=== PATIENT | female | born 1935 | race American Indian/Alaskan Native ===

== ENCOUNTER 2016-12-01 14:42 | Inpatient (IN) | payer MEDICARE ==
--- NOTE | 2016-12-01 15:37 | Cat Scan Report ---
Suggestive of head without contrast: History: Syncope. Findings: Ventricles are midline in location. Moderate volume loss. Periventricular low-attenuation. Study limited by motion artifacts. 3 cm focal area of low attenuation right cerebellum. No extra-axial fluid collection. Normal sinuses. Impression: No acute intracranial abnormality. Low-attenuation in the right cerebellum probably chronic ischemia. No evidence of hemorrhage. Cortical atrophy and small vessel ischemic changes.
--- NOTE | 2016-12-01 15:56 | XRay Report ---
Single view chest: History: Shortness of breath, syncope. Findings Normal cardiomediastinal silhouette. Trachea is midline. No consolidation, pneumothorax or pleural effusion. Impression: No acute cardiopulmonary findings.
[2016-12-01] MEDS ORDERED: ZOFRAN IV ONE (16:37)
[2016-12-01] MEDS ORDERED: MORPHINE IV ONE (16:37)
[2016-12-01 16:47] LABS: Eosinophils % (Auto) 3.8 % (0.0-4.3); Mean Corpuscular HGB Conc 30 % (30-34); Mean Corpuscular Volume 79 fl (79-97); Platelet Count 191 K/mm3 (140-440); Red Blood Count 5.28 M/mm3 (3.65-5.03); White Blood Count 5.9 K/mm3 (4.5-11.0)
[2016-12-01 16:49] LABS: Hemoglobin 12.6 gm/dl (10.1-14.3)
[2016-12-01 16:50] LABS: Creatine Kinase MB 2.6 ng/mL (0.0-4.0); Hematocrit 41.6 % (30.3-42.9); Mean Corpuscular Hemoglobin 24 pg (28-32)
[2016-12-01 16:51] LABS: Albumin 3.7 g/dL (3.9-5); Albumin/Globulin Ratio 1.1 %; BUN/Creatinine Ratio 12.85; Bilirubin,Total 0.2 mg/dL (0.1-1.2); Calcium 9.8 mg/dL (8.4-10.2); Chloride 103.7 mmol/L (98-107); Magnesium 1.7 mg/dL (1.7-2.3); Potassium 4.4 mmol/L (3.6-5.0); Total Protein 7.2 g/dL (6.3-8.2)
[2016-12-01 16:57] LABS: INR 1.03 (0.87-1.13)
[2016-12-01 16:58] LABS: Partial Thromboplastin Time 28.5 Sec. (24.2-36.6)
[2016-12-01] MEDS ORDERED: NACL 0.9% 1000 ML 1,000 ML ONE (17:04)
[2016-12-01] MEDS ORDERED: NACL 0.9% 1000 ML 1,000 ML IV ONE (17:12)
[2016-12-01 17:20] LABS: Urine Drugs of Abuse Note Disclamer
[2016-12-01 17:40] LABS: Bacteria,Urine 4+ /HPF (Negative); Bilirubin,Urine NEG (Negative); Blood,Urine SM (Negative); Ketones,Urine NEG (Negative); Leukocyte Esterase,Urine MOD (Negative); Mucus,Urine FEW /HPF; Nitrite,Urine NEG (Negative); Urobilinogen,Urine < 2.0 mg/dL (<2.0)
--- NOTE | 2016-12-01 17:44 | Emergency Department Report ---
ED Altered Mental Status HPI - General Chief Complaint: Altered Mental Status Stated Complaint: CVA Time Seen by Provider: 12/01/16 15:02 Source: EMS Mode of arrival: Stretcher Limitations: Altered Mental Status - History of Present Illness Initial Comments: 81-year-old female with a past medical history of CHF, diabetes, CABG 2, renal sufficiency, hypercholesterolemia, and hypertension presents to the hospital altered mental status. Episode was witnessed by daughter at the bedside. Patient states that they have just translucent patient from the wheelchair to the bed. Once in the bed she began to stay here and became unresponsive. Patient remained unresponsive even upon EMS arrival. EMS reports a D stick of 150 and a pressure of 60/36 with decreased respirations but positive gag. Patient presents to the ER with active bagging in progress. Patient does not have an IV in no meds administered in route. Patient is lethargic but opens her eyes to voice and follows commands. Appears to be weak overall and denies pain at this time. Patient unable to hold a conversation but will answer yes and no questions and able to tell me her name. History of present illness is obtained from EMS and daughters. Daughter also expresses concern due to left leg pain times one week. She states she told her primary care doctor's concern the patient has a blood clot. Once the other daughter came to the ED she states that patient has had ongoing left leg pain. Upon previous medical record review patient has had several complaints of leg pain and repeated negative ultrasounds in the past. Daughters report that she has never had a blood clot before despite their concern. They also deny unilateral edema PMD: Dr. Coyne - Related Data Home Medications Medication Instructions Recorded Confirmed Last Taken Aspirin [Aspirin BABY CHEW TAB] 81 mg PO QDAY 07/12/13 12/01/16 1 Day Ago Docusate Sodium [Colace CAP] 100 mg PO QHS 07/12/13 12/01/16 1 Day Ago Donepezil [Aricept] 2.5 mg PO QDAY 12/01/16 12/01/16 1 Day Ago Febuxostat [Uloric] 40 mg PO QDAY 12/01/16 12/01/16 1 Day Ago Gabapentin [Neurontin] 300 mg PO BID 12/01/16 12/01/16 1 Day Ago LORazepam [Ativan] 2.5 mg PO DAILY 12/01/16 12/01/16 1 Day Ago PARoxetine [Paxil] 2.5 mg PO DAILY 12/01/16 12/01/16 1 Day Ago Pantoprazole [Protonix] 40 mg PO BID 12/01/16 12/01/16 1 Day Ago Previous Rx's Medication Instructions Recorded Last Taken Type Carvedilol [Coreg] 6.25 mg PO BID #60 tablet 05/25/14 1 Day Ago Rx Clopidogrel [Plavix] 75 mg PO QDAY #30 tablet 05/25/14 1 Day Ago Rx Allergies Allergy/AdvReac Type Severity Reaction Status Date / Time amoxicillin [Amoxicillin] Allergy Intermediate Rash Verified 07/12/13 12:09 Penicillins Allergy Intermediate Rash Verified 07/12/13 12:09 ED Review of Systems ROS: Stated complaint: CVA Other details as noted in HPI Comment: Unobtainable due to pts medical conditions (diminished mental status) ED Past Medical Hx - Past Medical History Hx Hypertension: Yes Hx Heart Attack/AMI: Yes (CAD) Hx Congestive Heart Failure: Yes Hx Diabetes: Yes Hx Renal Disease: Yes (Renal Insufficiency) Additional medical history: high chol - Surgical History Hx Open Heart Surgery: Yes (CABG 2 vessels) - Social History Smoking Status: Never Smoker - Medications Home Medications: Home Medications Medication Instructions Recorded Confirmed Last Taken Type Aspirin [Aspirin BABY CHEW TAB] 81 mg PO QDAY 07/12/13 12/01/16 1 Day Ago History Docusate Sodium [Colace CAP] 100 mg PO QHS 07/12/13 12/01/16 1 Day Ago History Carvedilol [Coreg] 6.25 mg PO BID #60 tablet 05/25/14 12/01/16 1 Day Ago Rx Clopidogrel [Plavix] 75 mg PO QDAY #30 tablet 05/25/14 12/01/16 1 Day Ago Rx Donepezil [Aricept] 2.5 mg PO QDAY 12/01/16 12/01/16 1 Day Ago History Febuxostat [Uloric] 40 mg PO QDAY 12/01/16 12/01/16 1 Day Ago History Gabapentin [Neurontin] 300 mg PO BID 12/01/16 12/01/16 1 Day Ago History LORazepam [Ativan] 2.5 mg PO DAILY 12/01/16 12/01/16 1 Day Ago History PARoxetine [Paxil] 2.5 mg PO DAILY 12/01/16 12/01/16 1 Day Ago History Pantoprazole [Protonix] 40 mg PO BID 12/01/16 12/01/16 1 Day Ago History ED Physical Exam - General Limitations: Altered Mental Status - Other Other exam information: General: depressed mental status Head exam: Atraumatic, normocephalic Eyes exam: Normal appearance, pupils equal reactive to light ENT: Moist mucous membrane, normal oropharynx Neck exam: Normal inspection, full range of motion, no meningismus nontender Respiratory exam: Clear to auscultation bilateral, no wheezes, rales, crackles Cardiovascular: Normal rate and rhythm Abdomen: Soft, nondistended, and nontender, with normal bowel sounds, no rebound, or guarding Extremity: Full range of motion normal inspection no deformity, no edema Back: Normal Inspection, full range of motion, no tenderness Neurologic: Lethargic, slow speech, no facial droop, arousable to voice and mild tactile stimulation equal hand accounting intern and foot dorsiflexion however generalized weakness noted without unilateral predominance Psychiatric: normal affect, normal mood ED Course Vital Signs 12/01/16 12/01/16 12/01/16 14:42 14:43 14:52 Temperature Pulse Rate 77 Respiratory Rate Blood Pressure 117/72 Blood Pressure [Left] O2 Sat by Pulse 100 100 100 Oximetry 12/01/16 12/01/16 12/01/16 15:08 15:10 15:40 Temperature Pulse Rate 86 81 151 H Respiratory 17 18 Rate Blood Pressure 139/70 139/70 Blood Pressure [Left] O2 Sat by Pulse 100 Oximetry 12/01/16 12/01/16 12/01/16 15:50 16:00 16:10 Temperature Pulse Rate 79 81 80 Respiratory 12 9 L 11 L Rate Blood Pressure 108/53 118/61 118/61 Blood Pressure [Left] O2 Sat by Pulse 100 98 97 Oximetry 12/01/16 12/01/16 12/01/16 16:20 16:30 16:40 Temperature Pulse Rate 72 Respiratory 17 18 15 Rate Blood Pressure 139/70 118/61 74/45 Blood Pressure [Left] O2 Sat by Pulse 97 92 94 Oximetry 12/01/16 12/01/16 12/01/16 16:45 16:50 17:00 Temperature Pulse Rate 69 Respiratory 18 16 17 Rate Blood Pressure 74/45 68/38 Blood Pressure [Left] O2 Sat by Pulse 95 83 L Oximetry 12/01/16 12/01/16 12/01/16 17:10 17:20 17:30 Temperature Pulse Rate 74 78 82 Respiratory 14 13 12 Rate Blood Pressure 64/34 86/48 86/48 Blood Pressure [Left] O2 Sat by Pulse 100 100 100 Oximetry 12/01/16 12/01/16 12/01/16 17:40 17:50 18:00 Temperature Pulse Rate 82 82 86 Respiratory 12 11 L 13 Rate Blood Pressure 116/69 116/69 127/65 Blood Pressure [Left] O2 Sat by Pulse 100 100 100 Oximetry 12/01/16 12/01/16 12/01/16 18:05 18:10 18:20 Temperature Pulse Rate 86 89 84 Respiratory 12 13 Rate Blood Pressure 127/65 127/65 Blood Pressure [Left] O2 Sat by Pulse 100 100 Oximetry 12/01/16 12/01/16 12/01/16 18:30 19:10 19:33 Temperature Pulse Rate 92 H 91 H Respiratory 13 16 Rate Blood Pressure 113/67 113/67 Blood Pressure [Left] O2 Sat by Pulse 100 98 100 Oximetry 12/01/16 12/01/16 12/01/16 19:40 19:54 19:57 Temperature 98.7 F Pulse Rate 91 H 82 Respiratory 13 12 12 Rate Blood Pressure 118/57 Blood Pressure 120/60 [Left] O2 Sat by Pulse 98 98 98 Oximetry - Reevaluation(s) Reevaluation #1: 12/01/16 17:58 Patient presents to the ED with bag valve mask ventilations in progress. Since patient was responsive she was transitioned to a nonrebreather mask and subsequently a nasal cannula. The pressure systolic in the 100s upon arrival without intervention. I placed left external jugular 20-gauge catheter upon arrival due to difficult peripheral access. Daughter at bedside reports that patient became more responsive and closer to her baseline and was complaining of generalized body aches. Patient takes Tylenol for pain at home and there isn 't any history of chronic narcotic use. Daughter requesting medication for patient's pain. Patient could not receive Toradol given chronic renal insufficiency therefore a very small dose of morphine 2 mg ordered with Zofran. After morphine patient became more drowsy and less responsive and systolic blood pressure dropped to the 60s. 1 liter of normal saline initiated. After 200 mL BP increased to 86. Patient is drowsy but responsive to tactile stimulation. At this time pt has received 800Ml NS and SBP of 116. Pt does have a history CHF with initial negative chest x-ray. VQ scan has been ordered based on elevated D-Dimer however patient has chronic d-dimer elevation greater than 4000. At 2013 patient had a negative VQ and Doppler. Patient also had a negative Doppler in April 2016 for DVT despite elevated d-dimer. Patient has mild troponin elevation without signs of acute NH on EKG. There is a likely secondary to chronic venous insufficiency and repeat troponin is pending. Patient requires admission to the hospital for further workup and evaluation. 12/01/16 18:03 - Lab Data Result diagrams: 12/01/16 16:04 12/01/16 16:04 Lab Results 12/01/16 12/01/16 12/01/16 Range/Units 16:04 16:04 16:04 WBC 5.9 (4.5-11.0) K/mm3 RBC 5.28 H (3.65-5.03) M/mm3 Hgb 12.6 (10.1-14.3) gm/dl Hct 41.6 (30.3-42.9) % MCV 79 (79-97) fl MCH 24 L (28-32) pg MCHC 30 (30-34) % RDW 18.0 H (13.2-15.2) % Plt Count 191 (140-440) K/mm3 Lymph % (Auto) 30.6 (13.4-35.0) % [place] % (Auto) 7.0 (0.0-7.3) % Eos % (Auto) 3.8 (0.0-4.3) % Baso % (Auto) 1.0 (0.0-1.8) % Lymph # 1.8 (1.2-5.4) K/mm3 [place] # 0.4 (0.0-0.8) K/mm3 Eos # 0.2 (0.0-0.4) K/mm3 Baso # 0.1 (0.0-0.1) K/mm3 Seg Neutrophils % 57.6 (40.0-70.0) % Seg Neutrophils # 3.4 (1.8-7.7) K/mm3 PT 13.4 (12.2-14.9) Sec. INR 1.03 (0.87-1.13) APTT 28.5 (24.2-36.6) Sec. D-Dimer 8312.87 H (0-234) ng/mlDDU VBG pH (7.320-7.420) Sodium 142 (137-145) mmol/L Potassium 4.4 (3.6-5.0) mmol/L Chloride 103.7 (98-107) mmol/L Carbon Dioxide 24 (22-30) mmol/L Anion Gap 19 mmol/L BUN 27 H (7-17) mg/dL Creatinine 2.1 H (0.7-1.2) mg/dL Estimated GFR 27 ml/min BUN/Creatinine Ratio 12.85 % Glucose 104 H (65-100) mg/dL Lactic Acid (0.7-2.0) mmol/L Calcium 9.8 (8.4-10.2) mg/dL Magnesium 1.7 (1.7-2.3) mg/dL Total Bilirubin 0.2 (0.1-1.2) mg/dL AST 18 (5-40) units/L ALT 8 (7-56) units/L Alkaline Phosphatase 102 (35-129) units/L Total Creatine Kinase 82 (30-135) units/L CK-MB (CK-2) 2.6 (0.0-4.0) ng/mL CK-MB (CK-2) Rel Index 3.1 (0-4) Troponin T 0.065 H (0.00-0.029) ng/mL Total Protein 7.2 (6.3-8.2) g/dL Albumin 3.7 L (3.9-5) g/dL Albumin/Globulin Ratio 1.1 % Triglycerides 177 H (2-149) mg/dL Cholesterol 231 H (50-199) mg/dL LDL Cholesterol Direct 157 H (50-130) mg/dL HDL Cholesterol 39 L (40-59) mg/dL Cholesterol/HDL Ratio 5.92 % Urine Color (Yellow) Urine Turbidity (Clear) Urine pH (5.0-7.0) Ur Specific [place] (1.003-1.030) Urine Protein (Negative) mg/dL Urine Glucose (UA) (Negative) mg/dL Urine Ketones (Negative) mg/dL Urine Blood (Negative) Urine Nitrite (Negative) Urine Bilirubin (Negative) Urine Urobilinogen (<2.0) mg/dL Ur Leukocyte Esterase (Negative) Urine WBC (Auto) (0.0-6.0) /HPF Urine RBC (Auto) (0.0-6.0) /HPF U Epithel Cells (Auto) (0-13.0) /HPF Urine Bacteria (Auto) (Negative) /HPF Urine Mucus /HPF Salicylates (2.8-20.0) mg/dL Urine Opiates Screen Urine Methadone Screen Acetaminophen (10.0-30.0) ug/mL Ur Barbiturates Screen Ur Phencyclidine Scrn Ur Amphetamines Screen U Benzodiazepines Scrn Urine Cocaine Screen U Marijuana (THC) Screen Drugs of Abuse Note Plasma/Serum Alcohol (0-0.07) gm% 12/01/16 12/01/16 12/01/16 Range/Units 16:04 16:04 16:14 WBC (4.5-11.0) K/mm3 RBC (3.65-5.03) M/mm3 Hgb (10.1-14.3) gm/dl Hct (30.3-42.9) % MCV (79-97) fl MCH (28-32) pg MCHC (30-34) % RDW (13.2-15.2) % Plt Count (140-440) K/mm3 Lymph % (Auto) (13.4-35.0) % [place] % (Auto) (0.0-7.3) % Eos % (Auto) (0.0-4.3) % Baso % (Auto) (0.0-1.8) % Lymph # (1.2-5.4) K/mm3 [place] # (0.0-0.8) K/mm3 Eos # (0.0-0.4) K/mm3 Baso # (0.0-0.1) K/mm3 Seg Neutrophils % (40.0-70.0) % Seg Neutrophils # (1.8-7.7) K/mm3 PT (12.2-14.9) Sec. INR (0.87-1.13) APTT (24.2-36.6) Sec. D-Dimer (0-234) ng/mlDDU VBG pH 7.275 L (7.320-7.420) Sodium (137-145) mmol/L Potassium (3.6-5.0) mmol/L Chloride (98-107) mmol/L Carbon Dioxide (22-30) mmol/L Anion Gap mmol/L BUN (7-17) mg/dL Creatinine (0.7-1.2) mg/dL Estimated GFR ml/min BUN/Creatinine Ratio % Glucose (65-100) mg/dL Lactic Acid 1.2 (0.7-2.0) mmol/L Calcium (8.4-10.2) mg/dL Magnesium (1.7-2.3) mg/dL Total Bilirubin (0.1-1.2) mg/dL AST (5-40) units/L ALT (7-56) units/L Alkaline Phosphatase (35-129) units/L Total Creatine Kinase (30-135) units/L CK-MB (CK-2) (0.0-4.0) ng/mL CK-MB (CK-2) Rel Index (0-4) Troponin T (0.00-0.029) ng/mL Total Protein (6.3-8.2) g/dL Albumin (3.9-5) g/dL Albumin/Globulin Ratio % Triglycerides (2-149) mg/dL Cholesterol (50-199) mg/dL LDL Cholesterol Direct (50-130) mg/dL HDL Cholesterol (40-59) mg/dL Cholesterol/HDL Ratio % Urine Color (Yellow) Urine Turbidity (Clear) Urine pH (5.0-7.0) Ur Specific [place] (1.003-1.030) Urine Protein (Negative) mg/dL Urine Glucose (UA) (Negative) mg/dL Urine Ketones (Negative) mg/dL Urine Blood (Negative) Urine Nitrite (Negative) Urine Bilirubin (Negative) Urine Urobilinogen (<2.0) mg/dL Ur Leukocyte Esterase (Negative) Urine WBC (Auto) (0.0-6.0) /HPF Urine RBC (Auto) (0.0-6.0) /HPF U Epithel Cells (Auto) (0-13.0) /HPF Urine Bacteria (Auto) (Negative) /HPF Urine Mucus /HPF Salicylates (2.8-20.0) mg/dL Urine Opiates Screen Urine Methadone Screen Acetaminophen < 15.0 (10.0-30.0) ug/mL Ur Barbiturates Screen Ur Phencyclidine Scrn Ur Amphetamines Screen U Benzodiazepines Scrn Urine Cocaine Screen U Marijuana (THC) Screen Drugs of Abuse Note Plasma/Serum Alcohol (0-0.07) gm% 12/01/16 12/01/16 12/01/16 Range/Units 16:15 16:16 17:17 WBC (4.5-11.0) K/mm3 RBC (3.65-5.03) M/mm3 Hgb (10.1-14.3) gm/dl Hct (30.3-42.9) % MCV (79-97) fl MCH (28-32) pg MCHC (30-34) % RDW (13.2-15.2) % Plt Count (140-440) K/mm3 Lymph % (Auto) (13.4-35.0) % [place] % (Auto) (0.0-7.3) % Eos % (Auto) (0.0-4.3) % Baso % (Auto) (0.0-1.8) % Lymph # (1.2-5.4) K/mm3 [place] # (0.0-0.8) K/mm3 Eos # (0.0-0.4) K/mm3 Baso # (0.0-0.1) K/mm3 Seg Neutrophils % (40.0-70.0) % Seg Neutrophils # (1.8-7.7) K/mm3 PT (12.2-14.9) Sec. INR (0.87-1.13) APTT (24.2-36.6) Sec. D-Dimer (0-234) ng/mlDDU VBG pH (7.320-7.420) Sodium (137-145) mmol/L Potassium (3.6-5.0) mmol/L Chloride (98-107) mmol/L Carbon Dioxide (22-30) mmol/L Anion Gap mmol/L BUN (7-17) mg/dL Creatinine (0.7-1.2) mg/dL Estimated GFR ml/min BUN/Creatinine Ratio % Glucose (65-100) mg/dL Lactic Acid (0.7-2.0) mmol/L Calcium (8.4-10.2) mg/dL Magnesium (1.7-2.3) mg/dL Total Bilirubin (0.1-1.2) mg/dL AST (5-40) units/L ALT (7-56) units/L Alkaline Phosphatase (35-129) units/L Total Creatine Kinase (30-135) units/L CK-MB (CK-2) (0.0-4.0) ng/mL CK-MB (CK-2) Rel Index (0-4) Troponin T (0.00-0.029) ng/mL Total Protein (6.3-8.2) g/dL Albumin (3.9-5) g/dL Albumin/Globulin Ratio % Triglycerides (2-149) mg/dL Cholesterol (50-199) mg/dL LDL Cholesterol Direct (50-130) mg/dL HDL Cholesterol (40-59) mg/dL Cholesterol/HDL Ratio % Urine Color Stephanie (Yellow) Urine Turbidity Turbid (Clear) Urine pH 5.0 (5.0-7.0) Ur Specific [place] 1.024 (1.003-1.030) Urine Protein 100 mg/dl (Negative) mg/dL Urine Glucose (UA) Neg (Negative) mg/dL Urine Ketones Neg (Negative) mg/dL Urine Blood Sm (Negative) Urine Nitrite Neg (Negative) Urine Bilirubin Neg (Negative) Urine Urobilinogen < 2.0 (<2.0) mg/dL Ur Leukocyte Esterase Mod (Negative) Urine WBC (Auto) 1.0 (0.0-6.0) /HPF Urine RBC (Auto) 4.0 (0.0-6.0) /HPF U Epithel Cells (Auto) 2.0 (0-13.0) /HPF Urine Bacteria (Auto) 4+ (Negative) /HPF Urine Mucus Few /HPF Salicylates < 0.3 L (2.8-20.0) mg/dL Urine Opiates Screen Urine Methadone Screen Acetaminophen (10.0-30.0) ug/mL Ur Barbiturates Screen Ur Phencyclidine Scrn Ur Amphetamines Screen U Benzodiazepines Scrn Urine Cocaine Screen U Marijuana (THC) Screen Drugs of Abuse Note Plasma/Serum Alcohol < 0.01 (0-0.07) gm% 12/01/16 Range/Units 17:17 WBC (4.5-11.0) K/mm3 RBC (3.65-5.03) M/mm3 Hgb (10.1-14.3) gm/dl Hct (30.3-42.9) % MCV (79-97) fl MCH (28-32) pg MCHC (30-34) % RDW (13.2-15.2) % Plt Count (140-440) K/mm3 Lymph % (Auto) (13.4-35.0) % [place] % (Auto) (0.0-7.3) % Eos % (Auto) (0.0-4.3) % Baso % (Auto) (0.0-1.8) % Lymph # (1.2-5.4) K/mm3 [place] # (0.0-0.8) K/mm3 Eos # (0.0-0.4) K/mm3 Baso # (0.0-0.1) K/mm3 Seg Neutrophils % (40.0-70.0) % Seg Neutrophils # (1.8-7.7) K/mm3 PT (12.2-14.9) Sec. INR (0.87-1.13) APTT (24.2-36.6) Sec. D-Dimer (0-234) ng/mlDDU VBG pH (7.320-7.420) Sodium (137-145) mmol/L Potassium (3.6-5.0) mmol/L Chloride (98-107) mmol/L Carbon Dioxide (22-30) mmol/L Anion Gap mmol/L BUN (7-17) mg/dL Creatinine (0.7-1.2) mg/dL Estimated GFR ml/min BUN/Creatinine Ratio % Glucose (65-100) mg/dL Lactic Acid (0.7-2.0) mmol/L Calcium (8.4-10.2) mg/dL Magnesium (1.7-2.3) mg/dL Total Bilirubin (0.1-1.2) mg/dL AST (5-40) units/L ALT (7-56) units/L Alkaline Phosphatase (35-129) units/L Total Creatine Kinase (30-135) units/L CK-MB (CK-2) (0.0-4.0) ng/mL CK-MB (CK-2) Rel Index (0-4) Troponin T (0.00-0.029) ng/mL Total Protein (6.3-8.2) g/dL Albumin (3.9-5) g/dL Albumin/Globulin Ratio % Triglycerides (2-149) mg/dL Cholesterol (50-199) mg/dL LDL Cholesterol Direct (50-130) mg/dL HDL Cholesterol (40-59) mg/dL Cholesterol/HDL Ratio % Urine Color (Yellow) Urine Turbidity (Clear) Urine pH (5.0-7.0) Ur Specific [place] (1.003-1.030) Urine Protein (Negative) mg/dL Urine Glucose (UA) (Negative) mg/dL Urine Ketones (Negative) mg/dL Urine Blood (Negative) Urine Nitrite (Negative) Urine Bilirubin (Negative) Urine Urobilinogen (<2.0) mg/dL Ur Leukocyte Esterase (Negative) Urine WBC (Auto) (0.0-6.0) /HPF Urine RBC (Auto) (0.0-6.0) /HPF U Epithel Cells (Auto) (0-13.0) /HPF Urine Bacteria (Auto) (Negative) /HPF Urine Mucus /HPF Salicylates (2.8-20.0) mg/dL Urine Opiates Screen Presumptive negative Urine Methadone Screen Presumptive negative Acetaminophen (10.0-30.0) ug/mL Ur Barbiturates Screen Presumptive negative Ur Phencyclidine Scrn Presumptive negative Ur Amphetamines Screen Presumptive negative U Benzodiazepines Scrn Presumptive negative Urine Cocaine Screen Presumptive negative U Marijuana (THC) Screen Presumptive negative Drugs of Abuse Note Disclamer Plasma/Serum Alcohol (0-0.07) gm% - EKG Data -: EKG Interpreted by Me (nsr LAD, inf infarct) When compared to previous EKG there are: no significant change (05/23/2014) - Radiology Data Radiology results: report reviewed CT Head: Right cerebellum chronic ischemia no acute findings Chest x-ray: Previous sternotomy, no acute findings - Medical Decision Making Patient presents to the ED with bag valve mask ventilations in progress. Since patient was responsive she was transitioned to a nonrebreather mask and subsequently a nasal cannula. The pressure systolic in the 100s upon arrival without intervention. I placed left external jugular 20-gauge catheter upon arrival due to difficult peripheral access. Daughter at bedside reports that patient became more responsive and closer to her baseline and was complaining of generalized body aches. Patient takes Tylenol for pain at home and there isn 't any history of chronic narcotic use. Daughter requesting medication for patient's pain. Patient could not receive Toradol given chronic renal insufficiency therefore a very small dose of morphine 2 mg ordered with Zofran. After morphine patient became more drowsy and less responsive and systolic blood pressure dropped to the 60s. 1 liter of normal saline initiated. After 200 mL BP increased to 86. Patient is drowsy but responsive to tactile stimulation. At this time pt has received 800Ml NS and SBP of 116. Pt does have a history CHF with initial negative chest x-ray. VQ scan has been ordered based on elevated D-Dimer however patient has chronic d-dimer elevation greater than 4000. At 2013 patient had a negative VQ and Doppler. Patient also had a negative Doppler in April 2016 for DVT despite elevated d-dimer. Patient has mild troponin elevation without signs of acute NH on EKG. There is a likely secondary to chronic venous insufficiency and repeat troponin is pending. Patient requires admission to the hospital for further workup and evaluation. 12/01/16 18:03 - Differential Diagnosis vasovagal, hyperglycemia, encephalopathy, ICH, PE, dehydration Critical Care Time: Yes Critical care time in (mins) excluding proc time.: 40 (repeated bp and mental status reassesment) Critical care attestation.: If time is entered above; I have spent that time in minutes in the direct care of this critically ill patient, excluding procedure time. ED Disposition Clinical Impression: CHF exacerbation, Diabetes, Acute renal failure, [id number] renal failure , Elevated d-dimer, Syncope, Altered mental status, Elevated troponin, Hypotension Disposition: OP ADMITTED IP TO THIS HOSP Is pt being admited?: Yes Condition: Stable Time of Disposition: 18:13 (Dr gross/hosp)
--- NOTE | 2016-12-01 18:25 | Admit Criteria Form ---
Admission Criteria Documentation: MENTAL STATUS CHANGE Clinical Indications for Inpatient Care (Place 'X' for any and all applicable criteria): Ongoing inpatient care may be needed for ANY ONE of the following(1)(2)(3)(5)(6) : [ X]I. Suspected serious etiology (eg, medical disorder, GRAPHICS PROGRAMMER event) of mental status change [ ]II. Danger to self or others not manageable at lower level of care [ ]III. Grave disability (eg, inability to perform self care necessary at lower level of care) [ ]IV. Agitation or inappropriate behavior interfering with care for primary condition (eg, attempting to discontinue lines or drains prematurely, unable to cooperate with respiratory care) [ ]V. Delirium [A] [D][E] as described by ANY ONE of the following(26): [ ]a) Delirium due to alcohol or sedative [F] withdrawal [ ]b) Delirium of uncertain etiology that has not responded to appropriate empiric treatment [ ]c) Delirium that prevents performance of a life-sustaining function (eg, feeding or hydrating oneself) [X]. General contraindications and/or Inappropriate clinical situations for Observational Care in patients with Mental Status Change, when ANY ONE of the following is required: [X]a) Prediction of prolongation of LOS based on ANY ONE of the following may be considered as a contraindication for observational care 2, 3, 4, 5, 6, 7, 8, 9, 10, 11 [ X]i) Age > 65 yrs. [ ]ii) Patient arriving by ambulance [ ]iii) Patient with high acuity [X ]iv) Patient requiring vital sign monitoring [ ]v) Patient on IV medication [ ]b) Systolic blood pressures 180mmHg 3,12 [ ]c) Patient with altered mental status including delirium and other alteration of consciousness, (3) [ ]d) Patient whose discharge disposition will be to a retirement home or rehabilitation home should not be managed in Emergency Department Observation Unit. CMS rule requires 3 days hospital stay before such placement.3,13 [ ]e) Patient with failure to thrive due to broad array of etiologies 3,16,17 [ ]f) Inability to ambulate 3,14 Extended stay beyond goal length of stay for the primary condition may be needed until ALL of the following are present(3)(5): [ ]a) Underlying medical etiology of mental status change is absent, or has been established and adequately treated [ ]b) Danger to self or others is absent or manageable at lower level of care. [ ]c) Behavior crisis management, including physical or chemical restraints, is not required or available at lower level of car [ ]d) Substance or alcohol withdrawal is absent or manageable at lower level of care. [ ]e) Behavioral symptoms (eg, agitation, somnolence, inappropriate behavior) are absent, or are manageable at lower level of care. The original [facility] [employer] content created by [facility] [employer] has been revised. The portions of the content which have been revised are identified through the use of italic text or in bold, and [facility] has neither reviewed nor approved the modified material. All other unmodified content is copyright [facility]. Please see references footnoted in the original [facility] edition 2016 Admission Criteria Met: Yes
[2016-12-01] MEDS ORDERED: AMBIEN PO PRN (20:04)
[2016-12-01] MEDS ORDERED: MILK OF MAGNESIA PO PRN (20:04)
[2016-12-01] MEDS ORDERED: ZOFRAN IV PRN (20:04)
[2016-12-01] MEDS ORDERED: DULCOLAX PR PRN (20:04)
[2016-12-01] MEDS ORDERED: NOVOLOG SUB-Q ONE (20:10)
--- NOTE | 2016-12-01 20:24 | Nuclear Medicine Report ---
FINAL REPORT PROCEDURE: NM LUNG SCAN PERF/VENT TECHNIQUE: 5.0 mCi Tc-99m MAA was injected IV for pulmonary perfusion imaging in multiple projections. 15.0 mCi Xe 133 gas was inhaled for pulmonary ventilation imaging HISTORY: elevated d dimer, syncope COMPARISON: Chest x-ray December 01, 2016 . FINDINGS: Perfusion: No defects . Ventilation: No defects . IMPRESSION: Low probability for pulmonary embolism
[2016-12-01] MEDS: BABY ASPIRIN PO SCH (21:30)
[2016-12-01] MEDS: PLAVIX PO SCH (21:30)
[2016-12-01] MEDS: COLACE PO SCH (21:35)
[2016-12-01] MEDS: COREG PO SCH (21:40)
[2016-12-01] MEDS: NEURONTIN PO SCH (21:45)
[2016-12-01] MEDS: PROTONIX PO SCH (21:50)
[2016-12-02 05:52] LABS: Basophils % (Auto) 0.8 % (0.0-1.8); Eosinophils % (Auto) 2.8 % (0.0-4.3); Hematocrit 38.2 % (30.3-42.9); Hemoglobin 11.8 gm/dl (10.1-14.3); Mean Corpuscular HGB Conc 31 % (30-34); Mean Corpuscular Volume 78 fl (79-97); Platelet Count 172 K/mm3 (140-440); Red Blood Count 4.91 M/mm3 (3.65-5.03); Red Cell Distribution Width 18.1 % (13.2-15.2); White Blood Count 6.1 K/mm3 (4.5-11.0)
[2016-12-02 05:59] LABS: Mean Corpuscular Hemoglobin 24 pg (28-32)
[2016-12-02 06:16] LABS: Albumin 3.2 g/dL (3.9-5); Albumin/Globulin Ratio 1.1 %; BUN/Creatinine Ratio 14.54; Bilirubin,Total 0.2 mg/dL (0.1-1.2); Calcium 9.1 mg/dL (8.4-10.2); Chloride 106.4 mmol/L (98-107); Potassium 4.8 mmol/L (3.6-5.0); Total Protein 6.2 g/dL (6.3-8.2)
[2016-12-02] MEDS ORDERED: NON-FORMULARY (Febuxostat [Uloric] 40 MG) PO SCH (10:00)
[2016-12-02] MEDS: PROTONIX PO SCH ×2 (10:39→22:35)
[2016-12-02] MEDS: ARICEPT PO SCH (10:39)
[2016-12-02] MEDS: COREG PO SCH ×2 (10:40→22:35)
[2016-12-02] MEDS: ATIVAN PO SCH (10:40)
[2016-12-02] MEDS: BABY ASPIRIN PO SCH (10:41)
[2016-12-02] MEDS: NEURONTIN PO SCH ×2 (10:41→22:35)
[2016-12-02] MEDS: PLAVIX PO SCH (10:41)
[2016-12-02] MEDS: PAXIL PO SCH (10:42)
[2016-12-02] MEDS: LEVAQUIN 250MG/50ML 250 MG/50 ML BAG IV SCH (14:11)
[2016-12-02] MEDS ORDERED: D50W (25GM) IV ONE (21:59)
[2016-12-02] MEDS ORDERED: ELIQUIS PO SCH (22:00)
[2016-12-02] MEDS: COLACE PO SCH (22:35)
[2016-12-02] MEDS ORDERED: LOVENOX SUB-Q ONE (23:50)
--- NOTE | 2016-12-03 00:14 | Event Note ---
Date: 12/01/16 See H/p in reports
--- NOTE | 2016-12-03 01:43 | History and Physical Report ---
CHIEF COMPLAINT: Altered mental status. HISTORY OF PRESENT ILLNESS: A 81-year-old female with history of CHF, diabetes, renal insufficiency, CABG x 2 admitted for altered mental status, witnessed by daughter at bedside. Daughter stated the patient was transferred from wheelchair to the bed and once she was in bed she became unresponsive, remained unresponsive even upon EMS arrival. EMS reports the dipstick 150 and blood pressure of 60/36 with decreased respirations with positive gag. The patient presents to the ER with active bagging in process. The patient does not have IV access. The patient is lethargic, but opens her eyes to voice and follows commands. Appears to be ____ and denies pain at the this time. The patient is unable to hold a conversation, but answers yes and no questions. History of present illness obtained from EMS and daughter. Daughter also expresses concern due to left leg pain x 1 week. The patient has ongoing left leg pain. In summary, the patient has been having decreased responsiveness, low blood pressure, and left leg pain. PAST MEDICAL HISTORY: Significant for Gout, dementia, depression, gastroesophageal reflux disease, and hypertension. Coronary artery disease, also. Congestive heart failure, diabetes, renal insufficiency. PAST SURGICAL HISTORY: CABG x 2 vessels. SOCIAL HISTORY: Does not smoke. CURRENT MEDICATIONS: Coreg 6.25 b.i.d., Plavix 75 p.o. daily, Aricept 2.5 mg p.o. daily, Neurontin 300 mg twice a day, Ativan 2.5 p.o. daily, Paxil 2.5 p.o. daily, Protonix 40 mg p.o. b.i.d. REVIEW OF SYSTEMS: CONSTITUTIONAL: No weight loss, no weight gain. HEENT: No sore throat. No postnasal drip. CARDIOVASCULAR AND RESPIRATORY: No shortness of breath, no chest pain, no palpitations. GASTROINTESTINAL: No nausea, no vomiting, no diarrhea. GENITOURINARY: No dysuria, no flank pain. MUSCULOSKELETAL: No muscle weakness. CENTRAL NERVOUS SYSTEM: Lethargic, altered sensorium. SKIN: No rashes. A 14-point review of system was done and essentially negative. PHYSICAL EXAMINATION: GENERAL: Elderly female, cooperative during examination. Alert, oriented at the time of my examination. VITAL SIGNS: Blood pressure is 117/72, pulse is 77, sats are 100%. HEENT: Unremarkable. NECK: Supple. No lymphadenopathy, no thyromegaly. LUNGS: Clear to auscultation and percussion. Good air entry. CARDIOVASCULAR: S1, S2 heard. No gallop, no murmur, no rub. Apical impulse in left fifth intercostal space and midclavicular line. ABDOMEN: Soft and benign. No hepatosplenomegaly. No guarding, no rigidity. Hernial orifices are normal. EXTREMITIES: Good pedal pulses. No pedal edema. CENTRAL NERVOUS SYSTEM: Alert and oriented. EMERGENCY DEPARTMENT COURSE: In the ER, the patient was given IV fluids. After 200 mL, the blood pressure came back to near normal. The patient also has negative Doppler studies. LABORATORY DATA: Significant for white count of 6100, H and H is 11.8 and 38.2, platelet count is 172,000. Sodium is 141, potassium is 4.8, BUN and creatinine is 32 and 2.2, glucose is 122. Troponin is 0.074. Total protein is 6.2, albumin is 3.2. EKG shows a normal sinus rhythm, no acute ST-T wave changes. Chest x-ray consistent with congestive heart failure. ASSESSMENT AND PLAN: 1. Congestive heart failure exacerbation. The patient started on IV Lasix. Echocardiogram. Also, cardiology consult requested. 2. Acute on chronic renal failure. IV fluids for the time being. 3. Hypertension. Hold the blood pressure medications for the time being. If the blood pressure is not stable and higher then start the Coreg 6.25 b.i.d. 4. Coronary artery disease. Continue Plavix 75 mg daily. 5. Dementia. Continue donepezil. 6. Gout. Continue Uloric 80 mg daily to prevent gout. 7. Peripheral neuropathy. Continue gabapentin 300 mg twice a day. In summary, the patient has; 1. CHF exacerbation. 2. Hypotension, which has become normotensive. 3. Altered mental status. 4. Gout. 5. Insulin-dependent diabetes. JOB# [id number] VSM/NTS
[2016-12-03] MEDS: DILAUDID IV PRN (04:24)
--- NOTE | 2016-12-03 05:16 | Progress Note ---
Assessment and Plan - Patient Problems (1) Acute CHF Current Visit: Yes Status: Acute Qualifiers: Congestive heart failure type: C Plan to address problem: telemetry monitoring, Echo, supportive care. (2) DVT (deep venous thrombosis) Current Visit: Yes Status: Acute Qualifiers: DVT location: D Affected thrombotic vein of extremity: A Laterality: L Chronicity: C Plan to address problem: Initiate oral anticoagulation, (3) Dysphagia Current Visit: Yes Status: Acute Qualifiers: Dysphagia type: D Plan to address problem: NPO, Speech consulted for swallow evaluation (4) [id number] renal failure Current Visit: Yes Status: Acute Plan to address problem: IVF, supportive care, (5) Hypertension Current Visit: No Status: Chronic Qualifiers: Hypertension type: H Plan to address problem: continuje current care, monitor bp q shift, (6) UTI (urinary tract infection) Current Visit: Yes Status: Acute Qualifiers: Urinary tract infection type: U Hematuria presence: H Indwelling urinary catheter type: I Encounter type: E Plan to address problem: IV abx, supportive care. (7) Encephalopathy Current Visit: Yes Status: Acute Plan to address problem: suspect metabolic in nature, treat UTI, History Interval history: Pt lying in bed, NO reported nursing events. Pt denies pain. Pt granddaughter at bedside. Discussed care plan with patient and family. Hospitalist Physical - Constitutional Vitals: Temp Pulse Resp BP Pulse Ox 98.8 F 91 H 20 133/60 100 12/03/16 00:00 12/03/16 00:00 12/03/16 04:24 12/03/16 00:00 12/03/16 00:00 General appearance: Present: no acute distress, obese - EENT Eyes: Present: PERRL ENT: hearing intact - Neck Neck: Present: supple - Respiratory Respiratory: bilateral: diminished - Cardiovascular Rhythm: regular Heart Sounds: Present: S1 & S2 - Extremities Extremities: no ischemia Extremity abnormal: edema Peripheral Pulses: within normal limits - Abdominal General gastrointestinal: soft, non-tender, non-distended - Integumentary Integumentary: Present: clear, dry - Psychiatric Psychiatric: appropriate mood/affect, cooperative - Neurologic Neurologic: CNII-XII intact Results - Labs CBC & Chem 7: 12/02/16 05:08 12/02/16 05:08 Labs: Laboratory Last Values WBC 6.1 K/mm3 (4.5-11.0) 12/02/16 05:08 RBC 4.91 M/mm3 (3.65-5.03) 12/02/16 05:08 Hgb 11.8 gm/dl (10.1-14.3) 12/02/16 05:08 Hct 38.2 % (30.3-42.9) 12/02/16 05:08 MCV 78 fl (79-97) L 12/02/16 05:08 MCH 24 pg (28-32) L 12/02/16 05:08 MCHC 31 % (30-34) 12/02/16 05:08 RDW 18.1 % (13.2-15.2) H 12/02/16 05:08 Plt Count 172 K/mm3 (140-440) 12/02/16 05:08 Lymph % (Auto) 34.1 % (13.4-35.0) 12/02/16 05:08 [place] % (Auto) 9.4 % (0.0-7.3) H 12/02/16 05:08 Eos % (Auto) 2.8 % (0.0-4.3) 12/02/16 05:08 Baso % (Auto) 0.8 % (0.0-1.8) 12/02/16 05:08 Lymph # 2.1 K/mm3 (1.2-5.4) 12/02/16 05:08 [place] # 0.6 K/mm3 (0.0-0.8) 12/02/16 05:08 Eos # 0.2 K/mm3 (0.0-0.4) 12/02/16 05:08 Baso # 0.0 K/mm3 (0.0-0.1) 12/02/16 05:08 Seg Neutrophils % 52.9 % (40.0-70.0) 12/02/16 05:08 Seg Neutrophils # 3.2 K/mm3 (1.8-7.7) 12/02/16 05:08 PT 13.4 Sec. (12.2-14.9) 12/01/16 16:04 INR 1.03 (0.87-1.13) 12/01/16 16:04 APTT 28.5 Sec. (24.2-36.6) 12/01/16 16:04 D-Dimer 8312.87 ng/mlDDU (0-234) H 12/01/16 16:04 VBG pH 7.275 (7.320-7.420) L 12/01/16 16:14 Sodium 141 mmol/L (137-145) 12/02/16 05:08 Potassium 4.8 mmol/L (3.6-5.0) 12/02/16 05:08 Chloride 106.4 mmol/L (98-107) 12/02/16 05:08 Carbon Dioxide 21 mmol/L (22-30) L 12/02/16 05:08 Anion Gap 18 mmol/L 12/02/16 05:08 BUN 32 mg/dL (7-17) H 12/02/16 05:08 Creatinine 2.2 mg/dL (0.7-1.2) H 12/02/16 05:08 Estimated GFR 26 ml/min 12/02/16 05:08 BUN/Creatinine Ratio 14.54 % 12/02/16 05:08 Glucose 86 mg/dL (65-100) 12/02/16 05:08 POC Glucose 131 (70-105) H 12/03/16 00:38 Hemoglobin A1c 10.7 % (4-6) H 12/02/16 05:08 Lactic Acid 1.2 mmol/L (0.7-2.0) 12/01/16 16:04 Calcium 9.1 mg/dL (8.4-10.2) 12/02/16 05:08 Magnesium 1.7 mg/dL (1.7-2.3) 12/01/16 16:04 Total Bilirubin 0.2 mg/dL (0.1-1.2) 12/02/16 05:08 AST 19 units/L (5-40) 12/02/16 05:08 ALT 7 units/L (7-56) 12/02/16 05:08 Alkaline Phosphatase 89 units/L (35-129) 12/02/16 05:08 Total Creatine Kinase 82 units/L (30-135) 12/01/16 16:04 CK-MB (CK-2) 2.6 ng/mL (0.0-4.0) 12/01/16 16:04 CK-MB (CK-2) Rel Index 3.1 (0-4) 12/01/16 16:04 Troponin T 0.074 ng/mL (0.00-0.029) H 12/01/16 21:35 Total Protein 6.2 g/dL (6.3-8.2) L 12/02/16 05:08 Albumin 3.2 g/dL (3.9-5) L 12/02/16 05:08 Albumin/Globulin Ratio 1.1 % 12/02/16 05:08 Triglycerides 177 mg/dL (2-149) H 12/01/16 16:04 Cholesterol 231 mg/dL (50-199) H 12/01/16 16:04 LDL Cholesterol Direct 157 mg/dL (50-130) H 12/01/16 16:04 HDL Cholesterol 39 mg/dL (40-59) L 12/01/16 16:04 Cholesterol/HDL Ratio 5.92 % 12/01/16 16:04 TSH 0.504 mlU/mL (0.270-4.200) 12/02/16 13:11 Free T4 1.15 ng/dL (0.76-1.46) 12/02/16 13:11 Urine Color Stephanie (Yellow) 12/01/16 17:17 Urine Turbidity Turbid (Clear) 12/01/16 17:17 Urine pH 5.0 (5.0-7.0) 12/01/16 17:17 Ur Specific [place] 1.024 (1.003-1.030) 12/01/16 17:17 Urine Protein 100 mg/dl mg/dL (Negative) 12/01/16 17:17 Urine Glucose (UA) Neg mg/dL (Negative) 12/01/16 17:17 Urine Ketones Neg mg/dL (Negative) 12/01/16 17:17 Urine Blood Sm (Negative) 12/01/16 17:17 Urine Nitrite Neg (Negative) 12/01/16 17:17 Urine Bilirubin Neg (Negative) 12/01/16 17:17 Urine Urobilinogen < 2.0 mg/dL (<2.0) 12/01/16 17:17 Ur Leukocyte Esterase Mod (Negative) 12/01/16 17:17 Urine WBC (Auto) 1.0 /HPF (0.0-6.0) 12/01/16 17:17 Urine RBC (Auto) 4.0 /HPF (0.0-6.0) 12/01/16 17:17 U Epithel Cells (Auto) 2.0 /HPF (0-13.0) 12/01/16 17:17 Urine Bacteria (Auto) 4+ /HPF (Negative) 12/01/16 17:17 Urine Mucus Few /HPF 12/01/16 17:17 Salicylates < 0.3 mg/dL (2.8-20.0) L 12/01/16 16:15 Urine Opiates Screen Presumptive negative 12/01/16 17:17 Urine Methadone Screen Presumptive negative 12/01/16 17:17 Acetaminophen < 15.0 ug/mL (10.0-30.0) 12/01/16 16:04 Ur Barbiturates Screen Presumptive negative 12/01/16 17:17 Ur Phencyclidine Scrn Presumptive negative 12/01/16 17:17 Ur Amphetamines Screen Presumptive negative 12/01/16 17:17 U Benzodiazepines Scrn Presumptive negative 12/01/16 17:17 Urine Cocaine Screen Presumptive negative 12/01/16 17:17 U Marijuana (THC) Screen Presumptive negative 12/01/16 17:17 Drugs of Abuse Note Disclamer 12/01/16 17:17 Plasma/Serum Alcohol < 0.01 gm% (0-0.07) 12/01/16 16:16
[2016-12-03 06:09] LABS: BUN/Creatinine Ratio 16.08; Calcium 9.3 mg/dL (8.4-10.2); Chloride 111.1 mmol/L (98-107); Potassium 4.9 mmol/L (3.6-5.0)
--- NOTE | 2016-12-03 07:16 | Consultation ---
History of Present Illness - Reason for Consult Consult date: 12/03/16 acute renal failure, chronic renal failure, metabolic acidosis - History of Present Illness Patient is a 81 year old AAF with history significant for CHF, DM type 2, CAD s/ p CABG, CKD stage 3, Hypercholesterolemia, and Hypertension presents to the hospital with altered mental status. Patient is unable to give any history at this time and no family member at the bedside. Patient was found unresponsive with shallow breathing by her daughter. When EMS arrived her initial BP was 60/ 36 with decreased respirations but positive gag. Patient had left leg pain for about a week. On further evaluation she was found to have left LE DVT. V/Q scan was negative for PE. Her baseline creatinine was 1.4 and her creatinine is 2.3 today. Her BP is low normal. Past History Past Medical History: CAD, diabetes, hypertension, hyperlipidemia, renal failure Past Surgical History: CABG Medications and Allergies Allergies Allergy/AdvReac Type Severity Reaction Status Date / Time amoxicillin [Amoxicillin] Allergy Intermediate Rash Verified 07/12/13 12:09 Penicillins Allergy Intermediate Rash Verified 07/12/13 12:09 Home Medications Medication Instructions Recorded Confirmed Last Taken Type Aspirin [Aspirin BABY CHEW TAB] 81 mg PO QDAY 07/12/13 12/01/16 1 Day Ago History Docusate Sodium [Colace CAP] 100 mg PO QHS 07/12/13 12/01/16 1 Day Ago History Carvedilol [Coreg] 6.25 mg PO BID #60 tablet 05/25/14 12/01/16 1 Day Ago Rx Clopidogrel [Plavix] 75 mg PO QDAY #30 tablet 05/25/14 12/01/16 1 Day Ago Rx Donepezil [Aricept] 2.5 mg PO QDAY 12/01/16 12/01/16 1 Day Ago History Febuxostat [Uloric] 40 mg PO QDAY 12/01/16 12/01/16 1 Day Ago History Gabapentin [Neurontin] 300 mg PO BID 12/01/16 12/01/16 1 Day Ago History LORazepam [Ativan] 2.5 mg PO DAILY 12/01/16 12/01/16 1 Day Ago History PARoxetine [Paxil] 2.5 mg PO DAILY 12/01/16 12/01/16 1 Day Ago History Pantoprazole [Protonix] 40 mg PO BID 12/01/16 12/01/16 1 Day Ago History Active Meds: Active Medications Acetaminophen (Tylenol) 650 mg PO Q4H PRN PRN Reason: Pain MILD(1-3)/Fever >100.5/MONACO Apixaban (Eliquis) 2.[address] [facility] Last Admin: 12/02/16 22:35 Dose: Not Given Aspirin (Baby Aspirin) [address] [facility] Last Admin: 12/02/16 10:41 Dose: 81 mg Bisacodyl (Dulcolax) 10 mg MD QDAY PRN PRN Reason: Constipation unrelieved by MOM Carvedilol (Coreg) 6.[address] [facility] Last Admin: 12/02/16 22:35 Dose: Not Given Docusate Sodium (Colace) [address] [facility] Last Admin: 12/02/16 22:35 Dose: Not Given Donepezil HCl (Aricept) 2.[address] [facility] Last Admin: 12/02/16 10:39 Dose: 2.5 mg Gabapentin (Neurontin) [address] [facility] Last Admin: 12/02/16 22:35 Dose: Not Given Hydromorphone HCl (Dilaudid) 0.5 mg IV Q3H PRN PRN Reason: Pain , Severe (7-10) Last Admin: 12/03/16 04:24 Dose: 0.5 mg Levofloxacin/Dextrose (Levaquin 250mg/50ml) 250 mg in 50 mls @ 50 mls/hr IV Q24HR [facility] PRN Reason: Protocol Last Admin: 12/02/16 14:11 Dose: 50 mls/hr Lorazepam (Ativan) 2.[address] [facility] Last Admin: 12/02/16 10:40 Dose: 2.5 mg Magnesium Hydroxide (Milk Of Magnesia) 30 ml PO Q4H PRN PRN Reason: Constipation Miscellaneous Medication (Febuxostat [Uloric]) [address] [facility] Ondansetron HCl (Zofran) 4 mg IV Q8H PRN PRN Reason: N/V unrelieved by Reglan Last Admin: 12/03/16 04:23 Dose: 4 mg Pantoprazole Sodium (Protonix) [address] [facility] Last Admin: 12/02/16 22:35 Dose: Not Given Paroxetine HCl (Paxil) 2.5 mg PO DAILY [facility] Last Admin: 12/02/16 10:42 Dose: 2.5 mg Zolpidem Tartrate (Ambien) 5 mg PO QHS PRN PRN Reason: Insomnia Review of Systems ROS unobtainable: due to mental status Exam - Vital Signs Vital signs: Vital Signs Pulse Ox 100 12/01/16 14:42 - General Appearance General appearance: well-developed, well-nourished, obese, other (no distress) EENT: PERRL, hearing intact Neck: Present: neck supple, trachea midline Respiratory: Clear to Ascultation Heart: regular, S1S2, no murmurs Gastrointestinal: Present: normoactive bowel sounds. Absent: tenderness, distended, guarding Integumentary: no rash, warm and dry Neurologic: confused, other (follows command and able to move all 4 extremities) Musculoskeletal: Present: other (no edema) Psychiatric: mood/affect appropriate, cooperative Results - Lab Results 12/02/16 05:08 12/03/16 05:10 Most recent lab results Calcium 9.3 mg/dL (8.4-10.2) 12/03/16 05:10 Magnesium 1.7 mg/dL (1.7-2.3) 12/01/16 16:04 - Image Kidney/bladder ultrasound: pending Assessment and Plan - Patient Problems (1) CHEVY (acute kidney injury) Current Visit: Yes Status: Acute Plan to address problem: Acute Kidney Injury superimposed on CKD stage 3 in the setting of hypotension. BP is improving. Patient appears euvolemic. May need IV fluids if creatinine is not improving. Urine studies and Renal US ordered. (2) Hypotension Current Visit: Yes Status: Acute Qualifiers: Hypotension type: H Trimester: T Plan to address problem: Start on IV fluids. (3) Acute DVT (deep venous thrombosis) Current Visit: Yes Status: Acute Qualifiers: DVT location: D Affected thrombotic vein of extremity: A Laterality: L (4) Elevated troponin Current Visit: Yes Status: Acute Plan to address problem: Followed by Cards. (5) Dementia Current Visit: Yes Status: Chronic Qualifiers: Dementia type: D Alzheimer's disease onset: A Dementia behavioral disturbance: D
[2016-12-03] MEDS: ATIVAN PO SCH ×2 (10:10→15:14)
[2016-12-03] MEDS: ARICEPT PO SCH ×2 (10:10→15:13)
[2016-12-03] MEDS: ELIQUIS PO SCH ×3 (10:11→22:41)
[2016-12-03] MEDS: BABY ASPIRIN PO SCH ×2 (10:11→15:14)
[2016-12-03] MEDS: COREG PO SCH ×3 (10:11→22:44)
[2016-12-03] MEDS: NEURONTIN PO SCH ×3 (10:11→22:41)
[2016-12-03] MEDS: PROTONIX PO SCH ×3 (10:12→22:41)
[2016-12-03] MEDS: PAXIL PO SCH ×2 (10:12→15:15)
--- NOTE | 2016-12-03 10:51 | Consultation ---
History of Present Illness Consult date: 12/03/16 Requesting physician: JUAN C DAWN Consult reason: known to you History of present illness: The patient is a 81 year old female who presented to the ER for evaluation of altered mental status. Her daughter reports that as they were transferring the patient from her wheelchair to her bed, she became unresponsive and was only breathing four times per minute. Her daughter also reported right leg pain and swelling for the past several weeks. Bilateral lower extremity venous Dopplers showed an acute DVT in the right mid SFV extending to the right proximal posterior tibial and peroneal veins. V/Q scan low probability for PE. Head CT was negative for any acute intracranial abnormalities. Past History Past Medical History: CAD, diabetes, hypertension, hyperlipidemia, other ( chronic kidney disease, dementia) Past Surgical History: CABG Social history: lives with family, smoking. denies: alcohol abuse, prescription drug abuse, IV drug use, full code Family history: no significant family history Medications and Allergies Allergies Allergy/AdvReac Type Severity Reaction Status Date / Time amoxicillin [Amoxicillin] Allergy Intermediate Rash Verified 07/12/13 12:09 Penicillins Allergy Intermediate Rash Verified 07/12/13 12:09 Home Medications Medication Instructions Recorded Confirmed Last Taken Type Aspirin [Aspirin BABY CHEW TAB] 81 mg PO QDAY 07/12/13 12/01/16 1 Day Ago History Docusate Sodium [Colace CAP] 100 mg PO QHS 07/12/13 12/01/16 1 Day Ago History Carvedilol [Coreg] 6.25 mg PO BID #60 tablet 05/25/14 12/01/16 1 Day Ago Rx Clopidogrel [Plavix] 75 mg PO QDAY #30 tablet 05/25/14 12/01/16 1 Day Ago Rx Donepezil [Aricept] 2.5 mg PO QDAY 12/01/16 12/01/16 1 Day Ago History Febuxostat [Uloric] 40 mg PO QDAY 12/01/16 12/01/16 1 Day Ago History Gabapentin [Neurontin] 300 mg PO BID 12/01/16 12/01/16 1 Day Ago History LORazepam [Ativan] 2.5 mg PO DAILY 12/01/16 12/01/16 1 Day Ago History PARoxetine [Paxil] 2.5 mg PO DAILY 12/01/16 12/01/16 1 Day Ago History Pantoprazole [Protonix] 40 mg PO BID 12/01/16 12/01/16 1 Day Ago History Active Meds: Active Medications Acetaminophen (Tylenol) 650 mg PO Q4H PRN PRN Reason: Pain MILD(1-3)/Fever >100.5/MONACO Apixaban (Eliquis) 5 mg PO Q12HR [facility] Aspirin (Baby Aspirin) 81 mg PO QDAY [facility] Last Admin: 12/02/16 10:41 Dose: 81 mg Bisacodyl (Dulcolax) 10 mg [place] QDAY PRN PRN Reason: Constipation unrelieved by MOM Carvedilol (Coreg) 6.25 mg PO BID [facility] Last Admin: 12/02/16 22:35 Dose: Not Given Docusate Sodium (Colace) 100 mg PO QHS [facility] Last Admin: 12/02/16 22:35 Dose: Not Given Donepezil HCl (Aricept) 2.5 mg PO QDAY [facility] Last Admin: 12/02/16 10:39 Dose: 2.5 mg Gabapentin (Neurontin) 300 mg PO BID [facility] Last Admin: 12/02/16 22:35 Dose: Not Given Hydromorphone HCl (Dilaudid) 0.5 mg IV Q3H PRN PRN Reason: Pain , Severe (7-10) Last Admin: 12/03/16 04:24 Dose: 0.5 mg Levofloxacin/Dextrose (Levaquin 250mg/50ml) 250 mg in 50 mls @ 50 mls/hr IV Q24HR [facility] PRN Reason: Protocol Last Admin: 12/02/16 14:11 Dose: 50 mls/hr Lorazepam (Ativan) 2.5 mg PO DAILY [facility] Last Admin: 12/02/16 10:40 Dose: 2.5 mg Magnesium Hydroxide (Milk Of Magnesia) 30 ml PO Q4H PRN PRN Reason: Constipation Miscellaneous Medication (Febuxostat [Uloric]) 40 mg PO QDAY [facility] Ondansetron HCl (Zofran) 4 mg IV Q8H PRN PRN Reason: N/V unrelieved by Reglan Last Admin: 12/03/16 04:23 Dose: 4 mg Pantoprazole Sodium (Protonix) 40 mg PO BID [facility] Last Admin: 12/02/16 22:35 Dose: Not Given Paroxetine HCl (Paxil) 2.5 mg PO DAILY [facility] Last Admin: 12/02/16 10:42 Dose: 2.5 mg Zolpidem Tartrate (Ambien) 5 mg PO QHS PRN PRN Reason: Insomnia Review of Systems Constitutional: no fever, no chills Ears, nose, mouth and throat: no nasal congestion, no nasal discharge, no sinus pressure Cardiovascular: no chest pain, no palpitations Respiratory: no cough, no congestion, no wheezing Gastrointestinal: no nausea, no vomiting, no diarrhea Genitourinary Female: no dysuria, no urgency Musculoskeletal: no neck stiffness, no neck pain, no myalgias Integumentary: no rash, no pruritis Neurological: no numbness, no tingling, no headaches Endocrine: no cold intolerance, no heat intolerance Hematologic/Lymphatic: no easy bruising, no easy bleeding Allergic/Immunologic: no urticaria, no wheezing Physical Examination Last Vital Signs Temp 99 F 12/03/16 06:23 Pulse 87 12/03/16 06:23 Resp 20 12/03/16 06:23 BP 105/58 12/03/16 06:23 Pulse Ox 91 12/03/16 06:23 General appearance: no acute distress HEENT: Positive: Normocephaly, Mucus Membranes Moist Neck: Positive: neck supple, trachea midline Cardiac: Positive: Reg Rate and Rhythm, S1/S2 Lungs: Positive: clear to auscultation Neuro: Positive: Grossly Intact Abdomen: Positive: Soft, Active Bowel Sounds. Negative: Tender Skin: Positive: Clear. Negative: Rash Extremities: Absent: edema Results 12/02/16 05:08 12/03/16 05:10 Comprehensive Metabolic Panel 12/03/16 Range/Units 05:10 Sodium 143 (137-145) mmol/L Potassium 4.9 (3.6-5.0) mmol/L Chloride 111.1 H (98-107) mmol/L Carbon Dioxide 19 L (22-30) mmol/L BUN 37 H (7-17) mg/dL Creatinine 2.3 H (0.7-1.2) mg/dL Glucose 79 (65-100) mg/dL Calcium 9.3 (8.4-10.2) mg/dL - Imaging and Cardiology Echo: pending EKG: image reviewed EKG interpretations - Telemetry EKG Rhythm: Sinus Rhythm - EKG Sinus rhythms and dysrhythmias: sinus rhythm QRS axis and voltage: left axis deviation Myocardial infarction: inferior TX (old age inde Assessment and Plan Agree with Mateo. Will discontinue Plavix and continue ASA. Await echo findings. - Patient Problems (1) Acute DVT (deep venous thrombosis) Current Visit: Yes Status: Acute Qualifiers: DVT location: D Affected thrombotic vein of extremity: A Laterality: L (2) Elevated troponin Current Visit: Yes Status: Acute (3) Altered mental status Current Visit: Yes Status: Resolved Qualifiers: Altered mental status type: A Coma depth: C Coma timing: C (4) CAD (coronary artery disease) Current Visit: No Status: Chronic Qualifiers: Coronary Disease-Associated Artery/Lesion type: C [place] vs. transplanted heart: N Associated angina: A (5) Hx of CABG Current Visit: No Status: Chronic (6) Chronic kidney disease Current Visit: Yes Status: Chronic Qualifiers: Chronic kidney disease stage: C (7) Hypertension Current Visit: No Status: Chronic Qualifiers: Hypertension type: H (8) Diabetes Current Visit: Yes Status: Chronic Qualifiers: Diabetes mellitus type: D Diabetes mellitus complication status: D Diabetes mellitus complication detail: D Diabetic retinopathy severity: D Proliferative retinopathy type: P Diabetes mellitus macular edema: D Diabetes mellitus exterminator insulin use: D Laterality: L Chronic kidney disease stage: C (9) Dementia Current Visit: Yes Status: Chronic Qualifiers: Dementia type: D Alzheimer's disease onset: A Dementia behavioral disturbance: D
--- NOTE | 2016-12-03 11:30 | Vascular Lab Report ---
LOWER EXTREMITY VENOUS DUPLEX: REASON FOR EXAM: Leg pain elevated d-dimer.. COMMENTS ON THE RIGHT: Acute deep venous thrombosis is noted in the posterior tibial and peroneal veins extending through the popliteal i into mid femoral vein.. The remaining veins visualized are freely compressible without evidence of internal echogenicity. Spontaneous and phasic flow is absent proximally. COMMENTS ON THE LEFT: All veins visualized are freely compressible without evidence of internal echogenicity. Flow is spontaneous and phasic throughout. IMPRESSION: Deep venous thrombosis in the right lower extremity
[2016-12-03] MEDS ORDERED: FEBUXOSTAT 40 MG PO SCH (14:30)
[2016-12-03] MEDS: LEVAQUIN 250MG/50ML 250 MG/50 ML BAG IV SCH (15:14)
[2016-12-03] MEDS: TYLENOL PO PRN ×2 (15:16→22:41)
--- NOTE | 2016-12-03 19:12 | Progress Note ---
Assessment and Plan - Patient Problems (1) Acute CHF Current Visit: Yes Status: Acute Qualifiers: Congestive heart failure type: C Plan to address problem: telemetry monitoring, Echo, supportive care. (2) DVT (deep venous thrombosis) Current Visit: Yes Status: Acute Qualifiers: DVT location: D Affected thrombotic vein of extremity: A Laterality: L Chronicity: C Plan to address problem: Discussed dose with pharmacy. Pt dose changed as per pharmacy. (3) Dysphagia Current Visit: Yes Status: Acute Qualifiers: Dysphagia type: D Plan to address problem: NPO, Speech consulted for swallow evaluation (4) Filyk-cy-puvpedt renal failure Current Visit: Yes Status: Acute Plan to address problem: IVF, supportive care, (5) Hypertension Current Visit: No Status: Chronic Qualifiers: Hypertension type: H Plan to address problem: continuje current care, monitor bp q shift, (6) UTI (urinary tract infection) Current Visit: Yes Status: Acute Qualifiers: Urinary tract infection type: U Hematuria presence: H Indwelling urinary catheter type: I Encounter type: E Plan to address problem: IV abx, supportive care. (7) Encephalopathy Current Visit: Yes Status: Acute Plan to address problem: suspect metabolic in nature, treat UTI, (8) Debility Current Visit: Yes Status: Acute Plan to address problem: PT consulted, Discussed possible placement needs with daughter. Daughter states that she prefers to take her mother home with Home health/PT when medically ready for discharge. History Interval history: Pt lying in bed, NO reported nursing events. Pt denies pain. Pt daughter at bedside. Discussed care plan with patient and family. Hospitalist Physical - Constitutional Vitals: Temp Pulse Resp BP Pulse Ox 97.5 F L 84 20 116/57 96 12/03/16 09:20 12/03/16 10:00 12/03/16 15:16 12/03/16 09:20 12/03/16 10:00 General appearance: Present: no acute distress, obese - EENT Eyes: Present: PERRL, EOM intact ENT: hearing intact - Neck Neck: Present: supple - Respiratory Respiratory: bilateral: diminished - Cardiovascular Rhythm: regular Heart Sounds: Present: S1 & S2 - Extremities Extremity abnormal: edema Peripheral Pulses: within normal limits - Abdominal General gastrointestinal: soft, non-tender, non-distended - Integumentary Integumentary: Present: clear, dry - Psychiatric Psychiatric: appropriate mood/affect, cooperative - Neurologic Neurologic: CNII-XII intact Results - Labs CBC & Chem 7: 12/02/16 05:08 12/03/16 05:10 Labs: Laboratory Last Values WBC 6.1 K/mm3 (4.5-11.0) 12/02/16 05:08 RBC 4.91 M/mm3 (3.65-5.03) 12/02/16 05:08 Hgb 11.8 gm/dl (10.1-14.3) 12/02/16 05:08 Hct 38.2 % (30.3-42.9) 12/02/16 05:08 MCV 78 fl (79-97) L 12/02/16 05:08 MCH 24 pg (28-32) L 12/02/16 05:08 MCHC 31 % (30-34) 12/02/16 05:08 RDW 18.1 % (13.2-15.2) H 12/02/16 05:08 Plt Count 172 K/mm3 (140-440) 12/02/16 05:08 Lymph % (Auto) 34.1 % (13.4-35.0) 12/02/16 05:08 [place] % (Auto) 9.4 % (0.0-7.3) H 12/02/16 05:08 Eos % (Auto) 2.8 % (0.0-4.3) 12/02/16 05:08 Baso % (Auto) 0.8 % (0.0-1.8) 12/02/16 05:08 Lymph # 2.1 K/mm3 (1.2-5.4) 12/02/16 05:08 [place] # 0.6 K/mm3 (0.0-0.8) 12/02/16 05:08 Eos # 0.2 K/mm3 (0.0-0.4) 12/02/16 05:08 Baso # 0.0 K/mm3 (0.0-0.1) 12/02/16 05:08 Seg Neutrophils % 52.9 % (40.0-70.0) 12/02/16 05:08 Seg Neutrophils # 3.2 K/mm3 (1.8-7.7) 12/02/16 05:08 PT 13.4 Sec. (12.2-14.9) 12/01/16 16:04 INR 1.03 (0.87-1.13) 12/01/16 16:04 APTT 28.5 Sec. (24.2-36.6) 12/01/16 16:04 D-Dimer 8312.87 ng/mlDDU (0-234) H 12/01/16 16:04 VBG pH 7.275 (7.320-7.420) L 12/01/16 16:14 Sodium 143 mmol/L (137-145) 12/03/16 05:10 Potassium 4.9 mmol/L (3.6-5.0) 12/03/16 05:10 Chloride 111.1 mmol/L (98-107) H 12/03/16 05:10 Carbon Dioxide 19 mmol/L (22-30) L 12/03/16 05:10 Anion Gap 18 mmol/L 12/03/16 05:10 BUN 37 mg/dL (7-17) H 12/03/16 05:10 Creatinine 2.3 mg/dL (0.7-1.2) H 12/03/16 05:10 Estimated GFR 25 ml/min 12/03/16 05:10 BUN/Creatinine Ratio 16.08 % 12/03/16 05:10 Glucose 79 mg/dL (65-100) 12/03/16 05:10 POC Glucose 90 (70-105) 12/03/16 07:54 Hemoglobin A1c 10.7 % (4-6) H 12/02/16 05:08 Lactic Acid 1.2 mmol/L (0.7-2.0) 12/01/16 16:04 Calcium 9.3 mg/dL (8.4-10.2) 12/03/16 05:10 Magnesium 1.7 mg/dL (1.7-2.3) 12/01/16 16:04 Total Bilirubin 0.2 mg/dL (0.1-1.2) 12/02/16 05:08 AST 19 units/L (5-40) 12/02/16 05:08 ALT 7 units/L (7-56) 12/02/16 05:08 Alkaline Phosphatase 89 units/L (35-129) 12/02/16 05:08 Total Creatine Kinase 82 units/L (30-135) 12/01/16 16:04 CK-MB (CK-2) 2.6 ng/mL (0.0-4.0) 12/01/16 16:04 CK-MB (CK-2) Rel Index 3.1 (0-4) 12/01/16 16:04 Troponin T 0.074 ng/mL (0.00-0.029) H 12/01/16 21:35 Total Protein 6.2 g/dL (6.3-8.2) L 12/02/16 05:08 Albumin 3.2 g/dL (3.9-5) L 12/02/16 05:08 Albumin/Globulin Ratio 1.1 % 12/02/16 05:08 Triglycerides 177 mg/dL (2-149) H 12/01/16 16:04 Cholesterol 231 mg/dL (50-199) H 12/01/16 16:04 LDL Cholesterol Direct 157 mg/dL (50-130) H 12/01/16 16:04 HDL Cholesterol 39 mg/dL (40-59) L 12/01/16 16:04 Cholesterol/HDL Ratio 5.92 % 12/01/16 16:04 TSH 0.504 mlU/mL (0.270-4.200) 12/02/16 13:11 Free T4 1.15 ng/dL (0.76-1.46) 12/02/16 13:11 Urine Color Stephanie (Yellow) 12/01/16 17:17 Urine Turbidity Turbid (Clear) 12/01/16 17:17 Urine pH 5.0 (5.0-7.0) 12/01/16 17:17 Ur Specific [place] 1.024 (1.003-1.030) 12/01/16 17:17 Urine Protein 100 mg/dl mg/dL (Negative) 12/01/16 17:17 Urine Glucose (UA) Neg mg/dL (Negative) 12/01/16 17:17 Urine Ketones Neg mg/dL (Negative) 12/01/16 17:17 Urine Blood Sm (Negative) 12/01/16 17:17 Urine Nitrite Neg (Negative) 12/01/16 17:17 Urine Bilirubin Neg (Negative) 12/01/16 17:17 Urine Urobilinogen < 2.0 mg/dL (<2.0) 12/01/16 17:17 Ur Leukocyte Esterase Mod (Negative) 12/01/16 17:17 Urine WBC (Auto) 1.0 /HPF (0.0-6.0) 12/01/16 17:17 Urine RBC (Auto) 4.0 /HPF (0.0-6.0) 12/01/16 17:17 U Epithel Cells (Auto) 2.0 /HPF (0-13.0) 12/01/16 17:17 Urine Bacteria (Auto) 4+ /HPF (Negative) 12/01/16 17:17 Urine Mucus Few /HPF 12/01/16 17:17 Salicylates < 0.3 mg/dL (2.8-20.0) L 12/01/16 16:15 Urine Opiates Screen Presumptive negative 12/01/16 17:17 Urine Methadone Screen Presumptive negative 12/01/16 17:17 Acetaminophen < 15.0 ug/mL (10.0-30.0) 12/01/16 16:04 Ur Barbiturates Screen Presumptive negative 12/01/16 17:17 Ur Phencyclidine Scrn Presumptive negative 12/01/16 17:17 Ur Amphetamines Screen Presumptive negative 12/01/16 17:17 U Benzodiazepines Scrn Presumptive negative 12/01/16 17:17 Urine Cocaine Screen Presumptive negative 12/01/16 17:17 U Marijuana (THC) Screen Presumptive negative 12/01/16 17:17 Drugs of Abuse Note Disclamer 12/01/16 17:17 Plasma/Serum Alcohol < 0.01 gm% (0-0.07) 12/01/16 16:16
[2016-12-03] MEDS: COLACE PO SCH (22:41)
[2016-12-04 05:58] LABS: BUN/Creatinine Ratio 17.82; Calcium 9.2 mg/dL (8.4-10.2)
--- NOTE | 2016-12-04 07:58 | Progress Note ---
Assessment and Plan - Patient Problems (1) CHEVY (acute kidney injury) Current Visit: Yes Status: Acute (2) Hypotension Current Visit: Yes Status: Acute Qualifiers: Hypotension type: H Trimester: T (3) Acute DVT (deep venous thrombosis) Current Visit: Yes Status: Acute Qualifiers: DVT location: D Affected thrombotic vein of extremity: A Laterality: L (4) Elevated troponin Current Visit: Yes Status: Acute (5) Dementia Current Visit: Yes Status: Chronic Qualifiers: Dementia type: D Alzheimer's disease onset: A Dementia behavioral disturbance: D Subjective Date of service: 12/04/16 Objective - Vital Signs Vital signs: Vital Signs - 12hr 12/03/16 12/03/16 12/03/16 20:09 20:54 22:00 Temperature 98.1 F Pulse Rate Pulse Rate [ 86 Left Radial] Pulse Rate [ 85 Right Radial] Respiratory 20 18 Rate Respiratory 18 Rate [ Generalized] Blood Pressure Blood Pressure 114/55 [Left Arm] O2 Sat by Pulse 93 93 Oximetry 12/03/16 12/03/16 12/03/16 22:41 22:44 23:41 Temperature Pulse Rate 86 Pulse Rate [ Left Radial] Pulse Rate [ Right Radial] Respiratory 18 18 Rate Respiratory Rate [ Generalized] Blood Pressure 114/55 Blood Pressure [Left Arm] O2 Sat by Pulse Oximetry 12/04/16 04:00 Temperature 97.9 F Pulse Rate Pulse Rate [ 84 Left Radial] Pulse Rate [ Right Radial] Respiratory 20 Rate Respiratory Rate [ Generalized] Blood Pressure Blood Pressure 129/68 [Left Arm] O2 Sat by Pulse 100 Oximetry - Lab 12/02/16 05:08 12/04/16 05:08 Most recent lab results Calcium 9.2 mg/dL (8.4-10.2) 12/04/16 05:08 Magnesium 1.7 mg/dL (1.7-2.3) 12/01/16 16:04
--- NOTE | 2016-12-04 08:12 | Consultation ---
History of Present Illness - History of Present Illness Thank you for the consultation Assessment and plan; Patient has been established with our practice, and has been followed since 2007 Currently she is being seen and followed by another pain medicine physician and would request him to transfer her care to us, Renal failure patient's current creatinine is patient's baseline creatinine has been between 1.3-1.7 she was last seen in the office on November 17 History of hypercalcemia followed in the office Metabolic acidosis admission potassium was normal 4.4 current 5.0 bicarbonate is currently 21 needs to be corrected No evidence to suggest anemia this point with chronic kidney disease Proteinuria 100 mg in a random specimen with 4+ bacteria please consider urine culture Patient admitted with altered mental status Multiple other comorbidities including congestive heart failure, diabetes, coronary bypass graft, hyperlipidemia, hypertension, history of dementia neuropathy Past History Past Medical History: CAD, diabetes, hypertension, hyperlipidemia, renal failure Past Surgical History: CABG Social history: lives with family, smoking. denies: alcohol abuse, prescription drug abuse, IV drug use, full code Family history: no significant family history Medications and Allergies Allergies Allergy/AdvReac Type Severity Reaction Status Date / Time amoxicillin [Amoxicillin] Allergy Intermediate Rash Verified 07/12/13 12:09 Penicillins Allergy Intermediate Rash Verified 07/12/13 12:09 Home Medications Medication Instructions Recorded Confirmed Last Taken Type Aspirin [Aspirin BABY CHEW TAB] 81 mg PO QDAY 07/12/13 12/01/16 1 Day Ago History Docusate Sodium [Colace CAP] 100 mg PO QHS 07/12/13 12/01/16 1 Day Ago History Carvedilol [Coreg] 6.25 mg PO BID #60 tablet 05/25/14 12/01/16 1 Day Ago Rx Clopidogrel [Plavix] 75 mg PO QDAY #30 tablet 05/25/14 12/01/16 1 Day Ago Rx Donepezil [Aricept] 2.5 mg PO QDAY 12/01/16 12/01/16 1 Day Ago History Febuxostat [Uloric] 40 mg PO QDAY 12/01/16 12/01/16 1 Day Ago History Gabapentin [Neurontin] 300 mg PO BID 12/01/16 12/01/16 1 Day Ago History LORazepam [Ativan] 2.5 mg PO DAILY 12/01/16 12/01/16 1 Day Ago History PARoxetine [Paxil] 2.5 mg PO DAILY 12/01/16 12/01/16 1 Day Ago History Pantoprazole [Protonix] 40 mg PO BID 12/01/16 12/01/16 1 Day Ago History Active Meds: Active Medications Acetaminophen (Tylenol) 650 mg PO Q4H PRN PRN Reason: Pain MILD(1-3)/Fever >100.5/MONACO Last Admin: 12/03/16 22:41 Dose: 650 mg Apixaban (Eliquis) 5 mg PO Q12HR [facility] Last Admin: 12/03/16 22:41 Dose: 5 mg Aspirin (Baby Aspirin) 81 mg PO QDAY [facility] Last Admin: 12/03/16 15:14 Dose: 81 mg Bisacodyl (Dulcolax) 10 mg [place] QDAY PRN PRN Reason: Constipation unrelieved by MOM Carvedilol (Coreg) 6.25 mg PO BID [facility] Last Admin: 12/03/16 22:44 Dose: 6.25 mg Docusate Sodium (Colace) 100 mg PO QHS [facility] Last Admin: 12/03/16 22:41 Dose: 100 mg Donepezil HCl (Aricept) 2.5 mg PO QDAY [facility] Last Admin: 12/03/16 15:13 Dose: 2.5 mg Gabapentin (Neurontin) 300 mg PO BID [facility] Last Admin: 12/03/16 22:41 Dose: 300 mg Hydromorphone HCl (Dilaudid) 0.5 mg IV Q3H PRN PRN Reason: Pain , Severe (7-10) Last Admin: 12/03/16 04:24 Dose: 0.5 mg Levofloxacin/Dextrose (Levaquin 250mg/50ml) 250 mg in 50 mls @ 50 mls/hr IV Q24HR [facility] PRN Reason: Protocol Last Admin: 12/03/16 15:14 Dose: 50 mls/hr Lorazepam (Ativan) 2.5 mg PO DAILY [facility] Last Admin: 12/03/16 15:14 Dose: 2.5 mg Magnesium Hydroxide (Milk Of Magnesia) 30 ml PO Q4H PRN PRN Reason: Constipation Miscellaneous Medication (Febuxostat (Uloric)) 40 mg PO DAILY [facility] Ondansetron HCl (Zofran) 4 mg IV Q8H PRN PRN Reason: N/V unrelieved by Reglan Last Admin: 12/03/16 04:23 Dose: 4 mg Pantoprazole Sodium (Protonix) 40 mg PO BID [facility] Last Admin: 12/03/16 22:41 Dose: 40 mg Paroxetine HCl (Paxil) 2.5 mg PO DAILY [facility] Last Admin: 12/03/16 15:15 Dose: 2.5 mg Zolpidem Tartrate (Ambien) 5 mg PO QHS PRN PRN Reason: Insomnia Exam - Vital Signs Vital signs: Vital Signs Pulse Ox 100 12/01/16 14:42 Results - Lab Results 12/02/16 05:08 12/04/16 05:08 Most recent lab results Calcium 9.2 mg/dL (8.4-10.2) 12/04/16 05:08 Magnesium 1.7 mg/dL (1.7-2.3) 12/01/16 16:04
--- NOTE | 2016-12-04 08:57 | Ultrasound Report ---
ULTRASOUND RENAL INDICATION: Acute renal failure. COMPARISON: None similar. FINDINGS: Renal sonography suggests slight increased renal cortical echogenicity, more so on the right. Grossly preserved contours. No hydronephrosis. Right kidney measures 9.3 x 4 x 4.7 cm with cortical thickness of 1.2 cm. Left kidney estimated at 9.3 x 4 x 4.7 cm with cortical thickness of 1.7 cm. Left kidney partly obscured due to overlying rib artifact. Patient unable to take deep breaths. Urinary bladder suboptimally distended and assessed. CONCLUSION: No acute renal abnormality with mild underlying medical renal disease not excluded sonographically, as described. Please correlate. Thank you for the opportunity to participate in this patient's care.
[2016-12-04] MEDS: ATIVAN PO SCH (10:05)
[2016-12-04] MEDS: PAXIL PO SCH (10:06)
[2016-12-04] MEDS: NEURONTIN PO SCH ×2 (10:07→21:12)
[2016-12-04] MEDS: PROTONIX PO SCH ×2 (10:07→21:12)
[2016-12-04] MEDS: ELIQUIS PO SCH ×2 (10:07→21:11)
[2016-12-04] MEDS: ARICEPT PO SCH (10:09)
[2016-12-04] MEDS: COREG PO SCH ×2 (10:11→21:11)
[2016-12-04] MEDS: BABY ASPIRIN PO SCH (10:11)
[2016-12-04] MEDS: LEVAQUIN 250MG/50ML 250 MG/50 ML BAG IV SCH (10:12)
--- NOTE | 2016-12-04 11:44 | Progress Note ---
Assessment and Plan Stable cardiac status. Continue anticoagulation. - Patient Problems (1) Acute DVT (deep venous thrombosis) Current Visit: Yes Status: Acute Qualifiers: DVT location: lower extremity Affected thrombotic vein of extremity: A Laterality: right (2) Pulmonary hypertension Current Visit: Yes Status: Acute (3) Elevated troponin Current Visit: Yes Status: Acute (4) Chronic kidney disease Current Visit: Yes Status: Chronic Qualifiers: Chronic kidney disease stage: C (5) Altered mental status Current Visit: Yes Status: Resolved Qualifiers: Altered mental status type: A Coma depth: C Coma timing: C (6) CAD (coronary artery disease) Current Visit: Yes Status: Chronic Qualifiers: Coronary Disease-Associated Artery/Lesion type: [place] artery [place] vs. transplanted heart: N Associated angina: A (7) Hx of CABG Current Visit: Yes Status: Chronic (8) Hypertension Current Visit: Yes Status: Chronic Qualifiers: Hypertension type: H (9) Dementia Current Visit: Yes Status: Chronic Qualifiers: Dementia type: D Alzheimer's disease onset: A Dementia behavioral disturbance: D (10) Diabetes Current Visit: Yes Status: Chronic Qualifiers: Diabetes mellitus type: type 2 Diabetes mellitus complication status: D Diabetes mellitus complication detail: with nephropathy Diabetic retinopathy severity: D Proliferative retinopathy type: P Diabetes mellitus macular edema: D Diabetes mellitus [facility] insulin use: D Laterality: L Chronic kidney disease stage: C Subjective Date of service: 12/04/16 Principal diagnosis: Acute RLE DVT, Elevated Tn, CKD, CAD, h/o CABG Interval history: She claims that she feels better today. Remains in normal sinus rhythm. Objective Vital Signs Temp Pulse Pulse Pulse Pulse Resp Resp 12/04/16 09:48 12/04/16 08:00 97.5 F L 83 20 12/04/16 04:00 97.9 F 84 20 12/03/16 23:41 18 12/03/16 22:44 86 12/03/16 22:41 18 12/03/16 22:00 85 18 12/03/16 20:54 98.1 F 86 20 12/03/16 20:09 18 12/03/16 19:04 67 12/03/16 16:20 97.8 F 88 22 12/03/16 16:16 18 12/03/16 15:16 20 BP BP Pulse Ox 12/04/16 09:48 99 12/04/16 08:00 126/61 94 12/04/16 04:00 129/68 100 12/03/16 23:41 12/03/16 22:44 114/55 12/03/16 22:41 12/03/16 22:00 93 12/03/16 20:54 114/55 93 12/03/16 20:09 12/03/16 19:04 12/03/16 16:20 101/56 94 12/03/16 16:16 12/03/16 15:16 - Physical Examination HEENT: Positive: EOMI, Normocephaly, Mucus Membranes Moist Neck: Positive: neck supple, trachea midline Cardiac: Positive: Reg Rate and Rhythm, S1/S2 Lungs: Positive: clear to auscultation Neuro: Positive: Grossly Intact Abdomen: Positive: Soft, Active Bowel Sounds. Negative: Tender Skin: Positive: Clear. Negative: Rash Musculoskeletal: Normal Range of Motion Extremities: Absent: edema - Labs and Meds Comprehensive Metabolic Panel 12/04/16 Range/Units 05:08 Sodium 144 (137-145) mmol/L Potassium 5.0 (3.6-5.0) mmol/L Chloride 108.0 H (98-107) mmol/L Carbon Dioxide 21 L (22-30) mmol/L BUN 41 H (7-17) mg/dL Creatinine 2.3 H (0.7-1.2) mg/dL Glucose 139 H (65-100) mg/dL Calcium 9.2 (8.4-10.2) mg/dL - Imaging and Cardiology EKG: image reviewed Echo: image reviewed - Telemetry EKG Rhythm: Sinus Rhythm - EKG Sinus rhythms and dysrhythmias: sinus rhythm QRS axis and voltage: left axis deviation Myocardial infarction: inferior [place] (old age inde
--- NOTE | 2016-12-04 14:54 | Query- Renal Failure ---
Kentrell Ballesteros____Sathya Date:____12/04/16 Hand Crocheter/CDS:__Francisco J Ochoa Phone#:___[phone] Exercise your independent professional judgment when responding to query. Questions asked do not imply a particular answer is desired or expected. We greatly appreciate your clarification on this issue. Clinical Documentation States: 81 year old female was admitted on 12/01/16. The progress note (12/03/16) states " Acute on chronic renal failure. IVF, supportive care " The consultation note ( Dr. Croft 12/03/16) states " Acute kidney injury superimposed on CKD stage 3 in the setting of hypotension " Clinical Findings Show: 12/01/16 12/04/16 Creatinine : 2.1 2.3 Please clarify if you mean: Acute Renal Failure with or due to: [ ] Tubular Necrosis [ ] Medullary Necrosis [ x] Vasomotor Nephropathy [ ] Shock Kidney [ ] Tubular Nephrosis [ ] Renal Tubular Stasis [ ] Cortical Necrosis [ ] Acute Renal Failure (unspecified) [ ] Lower Tubular Nephrosis [ ] Other: [ ] Not Applicable Present on Admission: [ x] Yes (Y) [ ] Clinically undeterminable (W) [ ] No (N) Please also document response in your Progress Notes and/or Discharge Summary and indicate if the condition was present on admission. SEGUND
--- NOTE | 2016-12-04 17:00 | Progress Note ---
Assessment and Plan - Patient Problems (1) Acute CHF Current Visit: Yes Status: Acute Qualifiers: Congestive heart failure type: C Plan to address problem: telemetry monitoring, Echo, supportive care. (2) DVT (deep venous thrombosis) Current Visit: Yes Status: Acute Qualifiers: DVT location: D Affected thrombotic vein of extremity: A Laterality: L Chronicity: C Plan to address problem: Discussed dose with pharmacy. Pt dose changed as per pharmacy. (3) Dysphagia Current Visit: Yes Status: Acute Qualifiers: Dysphagia type: D Plan to address problem: Speech consulted. regular diet, thin liquids. (4) Qedmh-[id number] renal failure Current Visit: Yes Status: Acute Plan to address problem: IVF, supportive care, (5) Hypertension Current Visit: Yes Status: Chronic Qualifiers: Hypertension type: H Plan to address problem: continue current care, monitor bp q shift, (6) UTI (urinary tract infection) Current Visit: Yes Status: Acute Qualifiers: Urinary tract infection type: U Hematuria presence: H Indwelling urinary catheter type: I Encounter type: E Plan to address problem: IV abx, supportive care. (7) Encephalopathy Current Visit: Yes Status: Acute Plan to address problem: suspect metabolic in nature, treat UTI, (8) Debility Current Visit: Yes Status: Acute Plan to address problem: PT consulted, Discussed possible placement needs with daughter. Daughter states that she prefers to take her mother home with Home health/PT when medically ready for discharge. History Interval history: Pt lying in bed, NO reported nursing events. Pt denies pain. Pt states that she is feeling better today. Pt daughter at bedside. Discussed care plan with patient and family. Hospitalist Physical - Constitutional Vitals: Temp Pulse Resp BP Pulse Ox 97.5 F L 83 20 126/61 99 12/04/16 08:00 12/04/16 10:00 12/04/16 08:00 12/04/16 08:00 12/04/16 09:48 General appearance: Present: no acute distress, obese - EENT Eyes: Present: PERRL - Neck Neck: Present: supple - Respiratory Respiratory: bilateral: diminished - Cardiovascular Rhythm: regular Heart Sounds: Present: S1 & S2 - Extremities Extremities: no ischemia Extremity abnormal: edema Peripheral Pulses: within normal limits - Abdominal General gastrointestinal: soft, non-tender, non-distended - Integumentary Integumentary: Present: clear, dry - Psychiatric Psychiatric: appropriate mood/affect, cooperative - Neurologic Neurologic: CNII-XII intact, no gait normal Results - Labs CBC & Chem 7: 12/02/16 05:08 12/04/16 05:08 Labs: Laboratory Last Values WBC 6.1 K/mm3 (4.5-11.0) 12/02/16 05:08 RBC 4.91 M/mm3 (3.65-5.03) 12/02/16 05:08 Hgb 11.8 gm/dl (10.1-14.3) 12/02/16 05:08 Hct 38.2 % (30.3-42.9) 12/02/16 05:08 MCV 78 fl (79-97) L 12/02/16 05:08 MCH 24 pg (28-32) L 12/02/16 05:08 MCHC 31 % (30-34) 12/02/16 05:08 RDW 18.1 % (13.2-15.2) H 12/02/16 05:08 Plt Count 172 K/mm3 (140-440) 12/02/16 05:08 Lymph % (Auto) 34.1 % (13.4-35.0) 12/02/16 05:08 [place] % (Auto) 9.4 % (0.0-7.3) H 12/02/16 05:08 Eos % (Auto) 2.8 % (0.0-4.3) 12/02/16 05:08 Baso % (Auto) 0.8 % (0.0-1.8) 12/02/16 05:08 Lymph # 2.1 K/mm3 (1.2-5.4) 12/02/16 05:08 [place] # 0.6 K/mm3 (0.0-0.8) 12/02/16 05:08 Eos # 0.2 K/mm3 (0.0-0.4) 12/02/16 05:08 Baso # 0.0 K/mm3 (0.0-0.1) 12/02/16 05:08 Seg Neutrophils % 52.9 % (40.0-70.0) 12/02/16 05:08 Seg Neutrophils # 3.2 K/mm3 (1.8-7.7) 12/02/16 05:08 PT 13.4 Sec. (12.2-14.9) 12/01/16 16:04 INR 1.03 (0.87-1.13) 12/01/16 16:04 APTT 28.5 Sec. (24.2-36.6) 12/01/16 16:04 D-Dimer 8312.87 ng/mlDDU (0-234) H 12/01/16 16:04 VBG pH 7.275 (7.320-7.420) L 12/01/16 16:14 Sodium 144 mmol/L (137-145) 12/04/16 05:08 Potassium 5.0 mmol/L (3.6-5.0) 12/04/16 05:08 Chloride 108.0 mmol/L (98-107) H 12/04/16 05:08 Carbon Dioxide 21 mmol/L (22-30) L 12/04/16 05:08 Anion Gap 20 mmol/L 12/04/16 05:08 BUN 41 mg/dL (7-17) H 12/04/16 05:08 Creatinine 2.3 mg/dL (0.7-1.2) H 12/04/16 05:08 Estimated GFR 25 ml/min 12/04/16 05:08 BUN/Creatinine Ratio 17.82 % 12/04/16 05:08 Glucose 139 mg/dL (65-100) H 12/04/16 05:08 POC Glucose 106 (70-105) H 12/03/16 20:59 Hemoglobin A1c 10.7 % (4-6) H 12/02/16 05:08 Lactic Acid 1.2 mmol/L (0.7-2.0) 12/01/16 16:04 Calcium 9.2 mg/dL (8.4-10.2) 12/04/16 05:08 Magnesium 1.7 mg/dL (1.7-2.3) 12/01/16 16:04 Total Bilirubin 0.2 mg/dL (0.1-1.2) 12/02/16 05:08 AST 19 units/L (5-40) 12/02/16 05:08 ALT 7 units/L (7-56) 12/02/16 05:08 Alkaline Phosphatase 89 units/L (35-129) 12/02/16 05:08 Total Creatine Kinase 82 units/L (30-135) 12/01/16 16:04 CK-MB (CK-2) 2.6 ng/mL (0.0-4.0) 12/01/16 16:04 CK-MB (CK-2) Rel Index 3.1 (0-4) 12/01/16 16:04 Troponin T 0.074 ng/mL (0.00-0.029) H 12/01/16 21:35 Total Protein 6.2 g/dL (6.3-8.2) L 12/02/16 05:08 Albumin 3.2 g/dL (3.9-5) L 12/02/16 05:08 Albumin/Globulin Ratio 1.1 % 12/02/16 05:08 Triglycerides 177 mg/dL (2-149) H 12/01/16 16:04 Cholesterol 231 mg/dL (50-199) H 12/01/16 16:04 LDL Cholesterol Direct 157 mg/dL (50-130) H 12/01/16 16:04 HDL Cholesterol 39 mg/dL (40-59) L 12/01/16 16:04 Cholesterol/HDL Ratio 5.92 % 12/01/16 16:04 TSH 0.504 mlU/mL (0.270-4.200) 12/02/16 13:11 Free T4 1.15 ng/dL (0.76-1.46) 12/02/16 13:11 Urine Color Stephanie (Yellow) 12/01/16 17:17 Urine Turbidity Turbid (Clear) 12/01/16 17:17 Urine pH 5.0 (5.0-7.0) 12/01/16 17:17 Ur Specific [place] 1.024 (1.003-1.030) 12/01/16 17:17 Urine Protein 100 mg/dl mg/dL (Negative) 12/01/16 17:17 Urine Glucose (UA) Neg mg/dL (Negative) 12/01/16 17:17 Urine Ketones Neg mg/dL (Negative) 12/01/16 17:17 Urine Blood Sm (Negative) 12/01/16 17:17 Urine Nitrite Neg (Negative) 12/01/16 17:17 Urine Bilirubin Neg (Negative) 12/01/16 17:17 Urine Urobilinogen < 2.0 mg/dL (<2.0) 12/01/16 17:17 Ur Leukocyte Esterase Mod (Negative) 12/01/16 17:17 Urine WBC (Auto) 1.0 /HPF (0.0-6.0) 12/01/16 17:17 Urine RBC (Auto) 4.0 /HPF (0.0-6.0) 12/01/16 17:17 U Epithel Cells (Auto) 2.0 /HPF (0-13.0) 12/01/16 17:17 Urine Bacteria (Auto) 4+ /HPF (Negative) 12/01/16 17:17 Urine Mucus Few /HPF 12/01/16 17:17 Salicylates < 0.3 mg/dL (2.8-20.0) L 12/01/16 16:15 Urine Opiates Screen Presumptive negative 12/01/16 17:17 Urine Methadone Screen Presumptive negative 12/01/16 17:17 Acetaminophen < 15.0 ug/mL (10.0-30.0) 12/01/16 16:04 Ur Barbiturates Screen Presumptive negative 12/01/16 17:17 Ur Phencyclidine Scrn Presumptive negative 12/01/16 17:17 Ur Amphetamines Screen Presumptive negative 12/01/16 17:17 U Benzodiazepines Scrn Presumptive negative 12/01/16 17:17 Urine Cocaine Screen Presumptive negative 12/01/16 17:17 U Marijuana (THC) Screen Presumptive negative 12/01/16 17:17 Drugs of Abuse Note Disclamer 12/01/16 17:17 Plasma/Serum Alcohol < 0.01 gm% (0-0.07) 12/01/16 16:16
[2016-12-04] MEDS: COLACE PO SCH (21:11)
[2016-12-05] MEDS: ATIVAN PO SCH (09:34)
[2016-12-05] MEDS: BABY ASPIRIN PO SCH (09:36)
[2016-12-05] MEDS: COREG PO SCH (09:36)
[2016-12-05] MEDS: ARICEPT PO SCH (09:36)
[2016-12-05] MEDS: LEVAQUIN 250MG/50ML 250 MG/50 ML BAG IV SCH (09:36)
[2016-12-05] MEDS: NEURONTIN PO SCH (09:36)
[2016-12-05] MEDS: PROTONIX PO SCH (09:36)
[2016-12-05] MEDS: ELIQUIS PO SCH (09:38)
[2016-12-05 10:38] VITALS: BP 142/58
[2016-12-05] MEDS: DILAUDID IV PRN (11:12)
--- NOTE | 2016-12-05 11:16 | Progress Note ---
Assessment and Plan Chronic kidney disease patient's renal function has been stable for last several days She is currently being followed in our clinic since last 7-8 years was last seen by Dr. King on November 17, she has been noted to have deep venous thrombosis and is currently also being treated for acute congestive heart failure through [facility] Creatinine is 2.1 upon admission hemoglobin was 12.6 Patient was admitted with altered mental status hypotension currently doing much better, has history of underlying dementia as well Multiple other comorbidities including congestive heart failure diabetes CABG hypercholesterolemia noncompliance Her plan was discussed with patient as well as her daughter to make an appointment for follow-up in the office All she stable for discharge at this point from renal standpoint Subjective Principal diagnosis: Acute RLE DVT, Elevated Tn, CKD, CAD, h/o CABG Interval history: Seen today for follow-up no acute complaints no chest pain pressure shortness of breath daughter is at bedside patient will likely be going home today Events of 24 hours vitals labs intake output medications reviewed Objective - Vital Signs Vital signs: Vital Signs - 12hr 12/05/16 12/05/16 12/05/16 01:17 06:00 08:00 Temperature 98.4 F 98.2 F 97.9 F Pulse Rate Pulse Rate [ 83 Right Dorsalis Pedis] Pulse Rate [ 78 85 Right Radial] Respiratory 20 21 20 Rate Blood Pressure 90/43 123/55 142/58 [Left Arm] O2 Sat by Pulse 93 99 100 Oximetry 12/05/16 10:00 Temperature Pulse Rate 82 Pulse Rate [ Right Dorsalis Pedis] Pulse Rate [ Right Radial] Respiratory Rate Blood Pressure [Left Arm] O2 Sat by Pulse Oximetry - General Appearance General appearance: appears stated age EENT: mucous membranes moist Neck: no JVD Cardiology: regular Gastrointestinal: normal Integumentary: no rash Neurologic: other (alert awake follows command short-term memory impaired chronic) - Lab 12/02/16 05:08 12/04/16 05:08 Most recent lab results Calcium 9.2 mg/dL (8.4-10.2) 12/04/16 05:08 Magnesium 1.7 mg/dL (1.7-2.3) 12/01/16 16:04
--- NOTE | 2016-12-05 11:30 | Progress Note ---
Assessment and Plan Stable cardiac status. She'll follow-up with Dr. Gramajo as an outpatient in a couple weeks. - Patient Problems (1) Acute DVT (deep venous thrombosis) Current Visit: Yes Status: Acute Qualifiers: DVT location: lower extremity Affected thrombotic vein of extremity: A Laterality: right (2) Pulmonary hypertension Current Visit: Yes Status: Acute (3) Elevated troponin Current Visit: Yes Status: Acute (4) Chronic kidney disease Current Visit: Yes Status: Chronic Qualifiers: Chronic kidney disease stage: C (5) Altered mental status Current Visit: Yes Status: Resolved Qualifiers: Altered mental status type: A Coma depth: C Coma timing: C (6) CAD (coronary artery disease) Current Visit: Yes Status: Chronic Qualifiers: Coronary Disease-Associated Artery/Lesion type: [place] artery [place] vs. transplanted heart: N Associated angina: A (7) Hx of CABG Current Visit: Yes Status: Chronic (8) Hypertension Current Visit: Yes Status: Chronic Qualifiers: Hypertension type: H (9) Dementia Current Visit: Yes Status: Chronic Qualifiers: Dementia type: D Alzheimer's disease onset: A Dementia behavioral disturbance: D (10) Diabetes Current Visit: Yes Status: Chronic Qualifiers: Diabetes mellitus type: type 2 Diabetes mellitus complication status: D Diabetes mellitus complication detail: with nephropathy Diabetic retinopathy severity: D Proliferative retinopathy type: P Diabetes mellitus macular edema: D Diabetes mellitus manager terminal insulin use: D Laterality: L Chronic kidney disease stage: C Subjective Date of service: 12/05/16 Principal diagnosis: Acute RLE DVT, Elevated Tn, CKD, CAD, h/o CABG Interval history: Her complaint. She feels fine. Objective Vital Signs Temp Pulse Pulse Pulse Resp BP Pulse Ox 12/05/16 10:00 82 12/05/16 08:00 97.9 F 83 20 142/58 100 12/05/16 06:00 98.2 F 85 21 123/55 99 12/05/16 01:17 98.4 F 78 20 90/43 93 12/04/16 20:50 95 12/04/16 20:00 98.2 F 81 19 134/60 99 12/04/16 19:10 87 12/04/16 16:15 97.6 F 80 20 145/66 95 - Physical Examination HEENT: Positive: EOMI, Normocephaly, Mucus Membranes Moist Neck: Positive: neck supple, trachea midline Cardiac: Positive: Reg Rate and Rhythm, S1/S2 Lungs: Positive: clear to auscultation Neuro: Positive: Grossly Intact Abdomen: Positive: Soft, Active Bowel Sounds. Negative: Tender Skin: Positive: Clear. Negative: Rash Musculoskeletal: Normal Range of Motion Extremities: Absent: edema - Imaging and Cardiology EKG: image reviewed Echo: image reviewed - Telemetry EKG Rhythm: Sinus Rhythm - EKG Sinus rhythms and dysrhythmias: sinus rhythm QRS axis and voltage: left axis deviation Myocardial infarction: inferior [place] (old age inde
--- NOTE | 2016-12-05 11:31 | Discharge Summary ---
Providers - Providers Date of Admission: 12/01/16 18:41 Attending physician: JUAN C DAWN 12/02/16 11:14 Physical Therapy Evaluation and Treat [CONS] Routine Comment: Reason For Exam: weakness 12/02/16 11:15 Speech Therapy Evaluation and Treat [CONS] Routine Reason For Exam: dysphagia 12/03/16 00:16 Consult to Physician [CONS] Routine Consulting Provider: KAYLEY MARES Reason For Exam: Acute renal failure Place consult to:: RENAL Notified:: YES Was contact made?: Yes If yes, spoke with:: DR MARES Time called:: 09:37 12/03/16 19:07 Consult to Physician [CONS] Routine Consulting Provider: MERARY HALL Reason For Exam: renal failure Place consult to:: nephrology Notified:: DR KUMAR Phone number called:: [phone] Was contact made?: Yes If yes, spoke with:: DR KUMAR Time called:: 19:51 Primary care physician: YURI ZURITA MD Hospitalization Condition: Stable Disposition: STILL A PATIENT - Discharge Diagnoses (1) Acute CHF Status: Acute Qualifiers: Congestive heart failure type: C (2) DVT (deep venous thrombosis) Status: Acute Qualifiers: DVT location: D Affected thrombotic vein of extremity: A Laterality: L Chronicity: C (3) Dysphagia Status: Acute Qualifiers: Dysphagia type: D (4) [id number] renal failure Status: Acute (5) Hypertension Status: Chronic Qualifiers: Hypertension type: H (6) UTI (urinary tract infection) Status: Acute Qualifiers: Urinary tract infection type: U Hematuria presence: H Indwelling urinary catheter type: I Encounter type: E (7) Encephalopathy Status: Acute (8) Debility Status: Acute Exam - Constitutional Vitals: Temp Pulse Resp BP Pulse Ox 97.9 F 82 20 142/58 100 12/05/16 08:00 12/05/16 10:00 12/05/16 08:00 12/05/16 08:00 12/05/16 08:00 Plan Follow up with: PRIMARY CAREMD [Primary Care Provider] - 7 Days Prescriptions: Apixaban [Eliquis] 5 mg PO Q12HR #60 tablet Simvastatin [Zocor TAB] 20 mg PO QHS #30 tablet
== END 2016-12-05 15:21 | disposition home or self-care (01) | DRG 682 ==
LOC: ED 14:42 → 4A 18:41
PROVIDERS: ADMIT Internal Medicine; ATTEND Internal Medicine
DX: N17.0 Acute kidney failure with tubular necrosis (principal); G93.40 Encephalopathy, unspecified; I13.0 Hypertensive heart and chronic kidney disease with heart failure and stage 1 through stage 4 chronic kidney disease, or unspecified chronic kidney disease; I82.402 Acute embolism and thrombosis of unspecified deep veins of left lower extremity; N39.0 Urinary tract infection, site not specified; Z95.1 Presence of aortocoronary bypass graft; I50.9 Heart failure, unspecified; F03.90 Unspecified dementia, unspecified severity, without behavioral disturbance, psychotic disturbance, mood disturbance, and anxiety; I95.9 Hypotension, unspecified; E78.5 Hyperlipidemia, unspecified; I27.2 Other secondary pulmonary hypertension; M10.9 Gout, unspecified; I25.10 Atherosclerotic heart disease of native coronary artery without angina pectoris; R13.10 Dysphagia, unspecified; F32.9 Major depressive disorder, single episode, unspecified; K21.9 Gastro-esophageal reflux disease without esophagitis; E11.42 Type 2 diabetes mellitus with diabetic polyneuropathy; N18.3 Chronic kidney disease, stage 3 (moderate); Z88.0 Allergy status to penicillin; Z88.1 Allergy status to other antibiotic agents; Z79.82 Long term (current) use of aspirin; Z79.4 Long term (current) use of insulin
CPT/HCPCS: 36415; 70450; 71010; 76770; 78582; 80048; 80053; 80061; 80307; 80320; 81001; 82140; 82550; 82553; 82805; 82962; 83036; 83735; 84439; 84443; 84484; 85025; 85379; 85610; 85730; 93005; 93010; 93306; 93970; 94760; 96361; 96374; 96375; A9540; A9558; G0480; G8978-GP; G8979-GP; J1170; J1650; J1956; J2270; J2405; J7030

== ENCOUNTER 2017-01-05 14:52 | Emergency (ER) | payer MEDICARE ==
[2017-01-05] MEDS ORDERED: MORPHINE IV ONE ×2 (17:27→17:35)
[2017-01-05] MEDS ORDERED: NACL 0.9% 500 ML 500 ML IV ONE (17:27)
[2017-01-05] MEDS ORDERED: ZOFRAN IV ONE (17:28)
[2017-01-05 17:41] LABS: BUN/Creatinine Ratio 13.84; Calcium 9.9 mg/dL (8.4-10.2); Chloride 104.2 mmol/L (98-107); Potassium 4.4 mmol/L (3.6-5.0)
[2017-01-05 18:03] LABS: Basophils % (Auto) 1.1 % (0.0-1.8); Eosinophils % (Auto) 3.5 % (0.0-4.3); Mean Corpuscular HGB Conc 31 % (30-34); Mean Corpuscular Volume 78 fl (79-97); Platelet Count 274 K/mm3 (140-440); Red Blood Count 5.26 M/mm3 (3.65-5.03); Red Cell Distribution Width 16.1 % (13.2-15.2); White Blood Count 6.4 K/mm3 (4.5-11.0)
[2017-01-05 18:09] LABS: Hematocrit 41.2 % (30.3-42.9); Hemoglobin 12.6 gm/dl (10.1-14.3); Mean Corpuscular Hemoglobin 24 pg (28-32)
[2017-01-05 18:11] LABS: INR 2.07 (0.87-1.13)
--- NOTE | 2017-01-05 18:14 | Emergency Department Report ---
HPI - General Chief Complaint: Skin/Abscess/Foreign Body Time Seen by Provider: 01/05/17 17:20 - HPI HPI: The patient is a 81-year-old female with a history of diabetes, who presents for evaluation of pain to the bilateral heels, and subcutaneous blood to the right heel. She states that her pain has been present for the past 2 days, moderate in severity, aching in quality, worse with attempted ambulation, associated with blood under the skin of the right heel for the past 2 days. The patient rarely ambulates and only does so when transitioning with assistance. She and family members present and room does not recall significant trauma to the heels, fall, open wound. They also deny fever, chills , night sweats, paresthesias, distal motor deficit, swelling of the legs, blood in the stool, hematuria, hematemesis, hemoptysis, recurrent epistaxis, chest pain, dyspnea, abdominal pain. The patient does have history of blood thinner use. They also report a secondary complaint of left facial skin infection 1-2 weeks agoa and resolved over the past week. Admit to a history of recurrent skin infections or abscesses. ED Past Medical Hx - Past Medical History Previous Medical History?: Yes Hx Hypertension: Yes Hx Heart Attack/AMI: Yes (CAD) Hx Congestive Heart Failure: Yes Hx Diabetes: Yes Hx Deep Vein Thrombosis: Yes (2017) Hx Renal Disease: Yes (Renal Insufficiency) Hx Asthma: No Hx Dementia: Yes Additional medical history: high chol - Surgical History Past Surgical History?: Yes Hx Open Heart Surgery: Yes (CABG 2 vessels) Additional Surgical History: right hip surgery - Social History Smoking Status: Former Smoker Substance Use Type: Prescribed - Medications Home Medications: Home Medications Medication Instructions Recorded Confirmed Last Taken Type Aspirin [Aspirin BABY CHEW TAB] 81 mg PO QDAY 07/12/13 12/01/16 1 Day Ago History Carvedilol [Coreg] 6.25 mg PO BID #60 tablet 05/25/14 12/01/16 1 Day Ago Rx Donepezil [Aricept] 2.5 mg PO QDAY 12/01/16 12/01/16 1 Day Ago History Febuxostat [Uloric] 40 mg PO QDAY 12/01/16 12/01/16 1 Day Ago History Gabapentin [Neurontin] 300 mg PO BID 12/01/16 12/01/16 1 Day Ago History LORazepam [Ativan] 2.5 mg PO DAILY 12/01/16 12/01/16 1 Day Ago History PARoxetine [Paxil] 2.5 mg PO DAILY 12/01/16 12/01/16 1 Day Ago History Pantoprazole [Protonix TAB] 40 mg PO BID 12/01/16 12/01/16 1 Day Ago History Apixaban [Eliquis] 5 mg PO Q12HR #60 tablet 12/05/16 Unknown Rx Simvastatin [Zocor TAB] 20 mg PO QHS #30 tablet 12/05/16 Unknown Rx Oxycodone HCl/Acetaminophen 1 each PO Q6HR PRN #30 tablet 12/06/16 Unknown Rx [Percocet 2.5/325 mg] Doxycycline Hyclate [Doxycycline 100 mg PO Q12HR #20 tab 01/05/17 Unknown Rx Hyclate TAB] HYDROcodone/APAP 7.5-325 [[place] 1 each PO Q8HR PRN #10 tablet 01/05/17 Unknown Rx 7.5-325 mg TAB] ED Review of Systems ROS: Stated complaint: ABDOMINAL PAIN Other details as noted in HPI Constitutional: denies: fever ENT: denies: throat or neck pain Respiratory: denies: cough, shortness of breath Cardiovascular: denies: chest pain Endocrine: denies unexplained weight loss or gain Gastrointestinal: denies: abdominal pain, nausea Genitourinary: denies: dysuria Musculoskeletal: reports heel pain denies: leg swelling Skin: denies: rash Neurological: denies: headache Hematological/Lymphatic: denies: easy bleeding or easy bruising Psych: denies sadness or hopelessness Physical Exam - Physical Exam Vital Signs: Vital Signs 01/05/17 16:33 Temperature 98.1 F Pulse Rate 78 Respiratory 16 Rate Blood Pressure 175/86 O2 Sat by Pulse 95 Oximetry Physical Exam: General: well-nourished, well-developed, no acute distress Head: Normocephalic, atraumatic Eyes: normal sclera ENT: Mucous membranes are pale and dry Neck: No neck stiffness, no cervical adenopathy Respiratory: Breath sounds equal bilaterally, no wheezing, rales, or rhonchi Cardio: S1 and S2 present, no murmurs, rubs, gallops, capillary refill is delayed Abdomen: Normoactive bowel sounds, soft abdomen, no rigidity, no guarding or rebound tenderness Musc: 2cm circular subcutaneous hematoma present to the right heel, no open wound, no surrounding erythema, no warmth or fluctuance, no crepitus, left heel and right hip both tender to palpation, no dorsal midfoot or ankle tenderness to palpation whatsoever, no ankle pain elicited with passive or active ROM movement at the ankle joints bilaterally, superficial skin breakdown presents to the left heel, no redness, warmth, fluctuance or crepitus presents to the left heel, dorsalis pedes and posterior tibialis pulses intact, capillary refill in the toes brisk bilaterally, no sensation or motor deficit in the feet or toes bilaterally, No pitting edema in the legs Skin: No rash Neuro: no facial drooping, normal speech Psych: Normal affect ED Course Vital Signs 01/05/17 16:33 Temperature 98.1 F Pulse Rate 78 Respiratory 16 Rate Blood Pressure 175/86 O2 Sat by Pulse 95 Oximetry ED Medical Decision Making - Lab Data Result diagrams: 01/05/17 17:13 01/05/17 17:13 - Medical Decision Making The patient was seen and examined by myself. The patient is placed on a log inspector and continuous pulse ox. On initial evaluation, the patient was found to be in no distress. Evaluation orders were placed. The patient is given IV morphine for pain. Lab results for elevated glucose at 260, with normal bicarbonate, not consistent with DKA. Labs also revealed mildly elevated creatinine 1.3, consistent with patient's known creatinine level on multiple previous evaluations. The patient is given a normal saline fluid bolus for treatment of her dehydration and hyperglycemia. X-ray of the right heel is negative for periosteal elevation, soft tissue gas, or any other signs of osteomyelitis or necrosis at this time. The patient was reevaluated and reported that their symptoms were markedly improved. The patient states that she would like to be discharged home. The patient is negative for any active bleeding whatsoever. The patient's subcutaneous hematoma is small, non-expanding, and bleeding has been resolved for entire four -hour ED course. The patient is stable for discharge with outpatient follow- up. The patient will be given a prescription for antibiotic in the case that she should develop signs of cellulitis including fever. The patient is given follow-up and return instructions. The patient expressed understanding and agreed with the plan. The patient is discharged in stable condition. Critical care attestation.: If time is entered above; I have spent that time in minutes in the direct care of this critically ill patient, excluding procedure time. ED Disposition Clinical Impression: Heel pain, bilateral, Acute hyperglycemia, Dehydration, [id number] renal failure, Decubitus ulcer of right heel, stage 1 Traumatic hematoma of right foot Qualifiers: Encounter type: initial encounter Qualified Code(s): S90.31XA - Contusion of right foot, initial encounter Disposition: DISCHARGED TO HOME OR SELFCARE Is pt being admited?: No Does the pt Need Aspirin: No Condition: Stable Instructions: Musculoskeletal Pain (ED), Peripheral Neuropathy (ED), Pressure Ulcer (ED), How to Prevent Pressure Ulcers (ED), Contusion in Adults (ED) Referrals: PRIMARY CARE, [Primary Care Provider] - 3-5 Days Time of Disposition: 18:11
[2017-01-05 18:15] LABS: Partial Thromboplastin Time 68.3 Sec. (24.2-36.6)
[2017-01-05 20:26] VITALS: BP 147/73
--- NOTE | 2017-01-06 09:37 | XRay Report ---
BILATERAL CALCANEUS, 2 VIEWS History: Bilateral heel pain. Findings: There is borderline bone mineralization. No evidence for fracture, bony destruction or bony lesion. Moderate bilateral plantar spurs are identified. Degenerative changes are noted at the ankle and subtalar joints bilaterally. Impression: Bilateral plantar spurs.
== END 2017-01-05 22:17 | disposition home or self-care (01) ==
LOC: ED 14:52
DX: S90.31XA Contusion of right foot, initial encounter (principal); I12.9 Hypertensive chronic kidney disease with stage 1 through stage 4 chronic kidney disease, or unspecified chronic kidney disease; N18.9 Chronic kidney disease, unspecified; L89.611 Pressure ulcer of right heel, stage 1; E11.65 Type 2 diabetes mellitus with hyperglycemia; E86.0 Dehydration; I25.10 Atherosclerotic heart disease of native coronary artery without angina pectoris; I50.9 Heart failure, unspecified; F03.90 Unspecified dementia, unspecified severity, without behavioral disturbance, psychotic disturbance, mood disturbance, and anxiety; E78.00 Pure hypercholesterolemia, unspecified; Z86.718 Personal history of other venous thrombosis and embolism; Z87.891 Personal history of nicotine dependence; Z79.82 Long term (current) use of aspirin; X58.XXXA Exposure to other specified factors, initial encounter; Y93.89 Activity, other specified; Y99.8 Other external cause status; Y92.89 Other specified places as the place of occurrence of the external cause
CPT/HCPCS: 36415; 73650; 80048; 85025; 85610; 85730; 96361; 96374; 96375; 99284; J2270; J2405; J7040

== ENCOUNTER 2017-05-26 00:39 | Emergency (ER) | payer MEDICARE ==
[2017-05-26 01:53] LABS: Basophils % (Auto) 0.8 % (0.0-1.8); Eosinophils % (Auto) 5.4 % (0.0-4.3); Hematocrit 32.8 % (30.3-42.9); Hemoglobin 10.2 gm/dl (10.1-14.3); Mean Corpuscular HGB Conc 31 % (30-34); Mean Corpuscular Volume 75 fl (79-97); Platelet Count 276 K/mm3 (140-440); Red Blood Count 4.37 M/mm3 (3.65-5.03); Red Cell Distribution Width 16.5 % (13.2-15.2); White Blood Count 4.3 K/mm3 (4.5-11.0)
[2017-05-26 01:58] LABS: Mean Corpuscular Hemoglobin 23 pg (28-32)
[2017-05-26 02:06] LABS: BUN/Creatinine Ratio 15.55; Blood Urea Nitrogen 14 mg/dL (7-17); Calcium 9.6 mg/dL (8.4-10.2); Carbon Dioxide 23 mmol/L (22-30); Chloride 104.6 mmol/L (98-107); Glucose 184 mg/dL (65-100); Sodium 142 mmol/L (137-145)
[2017-05-26 02:09] LABS: INR 3.23 (0.87-1.13)
[2017-05-26 02:29] LABS: Anion Gap 19 mmol/L
[2017-05-26 02:31] LABS: Potassium 4.5 mmol/L (3.6-5.0)
[2017-05-26 03:06] LABS: Bacteria,Urine 3+ /HPF (Negative); Bilirubin,Urine NEG (Negative); Blood,Urine NEG (Negative); Ketones,Urine TR mg/dL (Negative); Leukocyte Esterase,Urine SM (Negative); Mucus,Urine FEW /HPF; Nitrite,Urine NEG (Negative); Urobilinogen,Urine < 2.0 mg/dL (<2.0)
[2017-05-26 04:31] VITALS: BP 141/44
--- NOTE | 2017-05-26 04:31 | Emergency Department Report ---
ED General Adult HPI - General Chief complaint: Extremity Injury, Lower Stated complaint: LEG PAIN Time Seen by Provider: 05/26/17 03:57 Source: patient, family, EMS, RN notes reviewed, old records reviewed Mode of arrival: Stretcher Limitations: Physical Limitation, Other (patient is demented and is a poor historian. History obtained by speaking to patient's daughter.) - History of Present Illness Initial comments: This is an 82-year-old female. She is previously unknown to me. She is bed bound, has a history of dementia, and is on chronic anticoagulation. She used to be on eliquis fot dvt. Patient recently admitted to [facility] for left lower extremity DVT, and was started on Lovenox and xarelto. The patient's daughter reports that the patient was discharged with both prescriptions, but she has been unable to fill the Lovenox prescription. The patient has been indicating that she's been having right lower extremity pain. The patient is demented and cannot describe the nature of the pain. As per the patient's daughter, no fevers, chills, chest pain, stress or breath, nausea, vomiting or diarrhea. Patient is bedbound and completely dependent on others for help with activities of daily living. Daughter reports she did not know what to do so she contacted 911. -: Gradual Location: right, lower extremity Consistency: other (per hpi) Improves with: other (per hpi) Worsens with: other (per hpi) Associated Symptoms: confusion (chronic confusion). denies: cough - Related Data Home Medications Medication Instructions Recorded Confirmed Last Taken Aspirin [Aspirin BABY CHEW TAB] 81 mg PO QDAY 07/12/13 05/26/17 1 Day Ago Gabapentin [Neurontin] 300 mg PO BID 12/01/16 05/26/17 1 Day Ago LORazepam [Ativan] 2.5 mg PO DAILY 12/01/16 05/26/17 1 Day Ago Pantoprazole [Protonix TAB] 40 mg PO BID 12/01/16 05/26/17 1 Day Ago Docusate Calcium [Stool Softener] 240 mg PO DAILY 05/26/17 05/26/17 Unknown Donepezil [Aricept] 5 mg PO QDAY 05/26/17 05/26/17 Unknown Gabapentin [Neurontin] 300 mg PO BID 05/26/17 05/26/17 Unknown Insulin Aspart Prot/Aspart(Nf) 0 units SQ TID 05/26/17 05/26/17 Unknown [Novolog Mix 70/30] Insulin Glargine [Lantus] 35 units SQ QHS 05/26/17 05/26/17 Unknown Rivaroxaban [Xarelto] 20 mg PO QDAY 05/26/17 05/26/17 Unknown Rivaroxaban [Xarelto] 30 mg PO BID 05/26/17 05/26/17 Unknown Simvastatin [Zocor TAB] 20 mg PO QHS 05/26/17 05/26/17 Unknown amLODIPine [Norvasc] 5 mg PO DAILY 05/26/17 05/26/17 Unknown Previous Rx's Medication Instructions Recorded Last Taken Type Enoxaparin [Lovenox] 90 mg SQ Q12HR #20 syringe 05/26/17 Unknown Rx Lidocaine [Lidoderm Patch] 1 each TP BID PRN #10 adh..patch 05/26/17 Unknown Rx Nitrofurantoin [place]/M-Cryst 100 mg PO Q12HR #14 capsule 05/26/17 Unknown Rx [Macrobid CAP] Allergies Allergy/AdvReac Type Severity Reaction Status Date / Time amoxicillin [Amoxicillin] Allergy Intermediate Rash Verified 07/12/13 12:09 Penicillins Allergy Intermediate Rash Verified 07/12/13 12:09 codeine Allergy Shortness Verified 05/26/17 01:26 of Breath ED Review of Systems ROS: Stated complaint: LEG PAIN Other details as noted in HPI Constitutional: denies: fever Eyes: denies: eye discharge ENT: denies: epistaxis Respiratory: denies: cough Cardiovascular: denies: chest pain Gastrointestinal: denies: vomiting Genitourinary: as per HPI Musculoskeletal: arthralgia, myalgia Skin: rash, lesions Neurological: confusion (chronic) ED Past Medical Hx - Past Medical History Previous Medical History?: Yes Hx Hypertension: Yes Hx Heart Attack/AMI: Yes (CAD) Hx Congestive Heart Failure: Yes Hx Diabetes: Yes Hx Deep Vein Thrombosis: Yes (2016) Hx Renal Disease: Yes (Renal Insufficiency) Hx Asthma: No Hx Dementia: Yes Additional medical history: high chol, AFIB - Surgical History Hx Open Heart Surgery: Yes (CABG 2 vessels) Additional Surgical History: right hip surgery - Social History Smoking Status: Never Smoker - Medications Home Medications: Home Medications Medication Instructions Recorded Confirmed Last Taken Type Aspirin [Aspirin BABY CHEW TAB] 81 mg PO QDAY 07/12/13 05/26/17 1 Day Ago History Gabapentin [Neurontin] 300 mg PO BID 12/01/16 05/26/17 1 Day Ago History LORazepam [Ativan] 2.5 mg PO DAILY 12/01/16 05/26/17 1 Day Ago History Pantoprazole [Protonix TAB] 40 mg PO BID 12/01/16 05/26/17 1 Day Ago History Docusate Calcium [Stool Softener] 240 mg PO DAILY 05/26/17 05/26/17 Unknown History Donepezil [Aricept] 5 mg PO QDAY 05/26/17 05/26/17 Unknown History Enoxaparin [Lovenox] 90 mg SQ Q12HR #20 syringe 05/26/17 Unknown Rx Gabapentin [Neurontin] 300 mg PO BID 05/26/17 05/26/17 Unknown History Insulin Aspart Prot/Aspart(Nf) 0 units SQ TID 05/26/17 05/26/17 Unknown History [Novolog Mix 70/30] Insulin Glargine [Lantus] 35 units SQ QHS 05/26/17 05/26/17 Unknown History Lidocaine [Lidoderm Patch] 1 each TP BID PRN #10 adh..patch 05/26/17 Unknown Rx Nitrofurantoin [place]/M-Cryst 100 mg PO Q12HR #14 capsule 05/26/17 Unknown Rx [Macrobid CAP] Rivaroxaban [Xarelto] 20 mg PO QDAY 05/26/17 05/26/17 Unknown History Rivaroxaban [Xarelto] 30 mg PO BID 05/26/17 05/26/17 Unknown History Simvastatin [Zocor TAB] 20 mg PO QHS 05/26/17 05/26/17 Unknown History amLODIPine [Norvasc] 5 mg PO DAILY 05/26/17 05/26/17 Unknown History ED Physical Exam - General Limitations: Altered Mental Status, Physical Limitation General appearance: alert, in no apparent distress - Head Head exam: Present: atraumatic, normocephalic - Eye Eye exam: Present: normal appearance - ENT ENT exam: Present: normal exam, normal orophraynx, mucous membranes moist, normal external ear exam - Neck Neck exam: Present: normal inspection, full ROM - Respiratory Respiratory exam: Present: normal lung sounds bilaterally. Absent: respiratory distress, wheezes, rales, rhonchi, stridor, chest wall tenderness, accessory muscle use, decreased breath sounds, prolonged expiratory - Cardiovascular Cardiovascular Exam: Present: regular rate, normal rhythm, normal heart sounds. Absent: bradycardia, tachycardia, irregular rhythm, systolic murmur, diastolic murmur, rubs, gallop - GI/Abdominal GI/Abdominal exam: Present: soft, normal bowel sounds. Absent: distended, tenderness, guarding, rebound, rigid, pulsatile mass - Rectal Rectal exam: Present: normal inspection, other (no sacral ulcers or step-offs.) - Extremities Exam Extremities exam: Present: tenderness (there is right heel tenderness. On the medial aspect of the right heel, there is a 1 x 1 cm area of skin breakdown with ulceration. No redness, pus or streaking. No crepitus.), normal capillary refill, pedal edema, other (the compartments are soft. 2+ pulses noted in the bilateral upper and lower extremity. Lower extremity is contracted.) - Back Exam Back exam: Present: normal inspection. Absent: tenderness, paraspinal tenderness, vertebral tenderness - Neurological Exam Neurological exam: Present: altered (patient demented at baseline. Moans incomprehensibly. Daughter states this is baseline.) - Psychiatric Psychiatric exam: Present: normal affect, normal mood - Skin Skin exam: Present: warm, dry, intact, normal color. Absent: rash ED Course Vital Signs 05/26/17 05/26/17 05/26/17 01:16 02:03 03:25 Temperature 98.7 F 98.7 F Pulse Rate 71 Respiratory 20 20 Rate Blood Pressure 160/62 O2 Sat by Pulse 97 97 Oximetry ED Medical Decision Making - Lab Data Result diagrams: 05/26/17 01:32 05/26/17 01:32 Vital Signs 05/26/17 05/26/17 05/26/17 01:16 02:03 03:25 Temperature 98.7 F 98.7 F Pulse Rate 71 Respiratory 20 20 Rate Blood Pressure 160/62 O2 Sat by Pulse 97 97 Oximetry Lab Results 05/26/17 05/26/17 05/26/17 Range/Units 01:32 01:32 01:32 WBC 4.3 L (4.5-11.0) K/mm3 RBC 4.37 (3.65-5.03) M/mm3 Hgb 10.2 (10.1-14.3) gm/dl Hct 32.8 (30.3-42.9) % MCV 75 L (79-97) fl MCH 23 L (28-32) pg MCHC 31 (30-34) % RDW 16.5 H (13.2-15.2) % Plt Count 276 (140-440) K/mm3 Lymph % (Auto) 33.7 (13.4-35.0) % [place] % (Auto) 7.0 (0.0-7.3) % Eos % (Auto) 5.4 H (0.0-4.3) % Baso % (Auto) 0.8 (0.0-1.8) % Lymph # 1.5 (1.2-5.4) K/mm3 [place] # 0.3 (0.0-0.8) K/mm3 Eos # 0.2 (0.0-0.4) K/mm3 Baso # 0.0 (0.0-0.1) K/mm3 Seg Neutrophils % 53.1 (40.0-70.0) % Seg Neutrophils # 2.3 (1.8-7.7) K/mm3 PT 34.7 H (12.2-14.9) Sec. INR 3.23 H (0.87-1.13) Sodium 142 (137-145) mmol/L Potassium 4.5 (3.6-5.0) mmol/L Chloride 104.6 (98-107) mmol/L Carbon Dioxide 23 (22-30) mmol/L Anion Gap 19 mmol/L BUN 14 (7-17) mg/dL Creatinine 0.9 (0.7-1.2) mg/dL Estimated GFR > 60 ml/min BUN/Creatinine Ratio 15.55 % Glucose 184 H (65-100) mg/dL Calcium 9.6 (8.4-10.2) mg/dL Magnesium 1.60 L (1.7-2.3) mg/dL NT-Pro-B Natriuret Pep 1767 H (0-900) pg/mL Urine Color (Yellow) Urine Turbidity (Clear) Urine pH (5.0-7.0) Ur Specific [place] (1.003-1.030) Urine Protein (Negative) mg/dL Urine Glucose (UA) (Negative) mg/dL Urine Ketones (Negative) mg/dL Urine Blood (Negative) Urine Nitrite (Negative) Urine Bilirubin (Negative) Urine Urobilinogen (<2.0) mg/dL Ur Leukocyte Esterase (Negative) Urine WBC (Auto) (0.0-6.0) /HPF Urine RBC (Auto) (0.0-6.0) /HPF U Epithel Cells (Auto) (0-13.0) /HPF Urine Bacteria (Auto) (Negative) /HPF Urine Mucus /HPF 05/26/17 Range/Units 02:52 WBC (4.5-11.0) K/mm3 RBC (3.65-5.03) M/mm3 Hgb (10.1-14.3) gm/dl Hct (30.3-42.9) % MCV (79-97) fl MCH (28-32) pg MCHC (30-34) % RDW (13.2-15.2) % Plt Count (140-440) K/mm3 Lymph % (Auto) (13.4-35.0) % [place] % (Auto) (0.0-7.3) % Eos % (Auto) (0.0-4.3) % Baso % (Auto) (0.0-1.8) % Lymph # (1.2-5.4) K/mm3 [place] # (0.0-0.8) K/mm3 Eos # (0.0-0.4) K/mm3 Baso # (0.0-0.1) K/mm3 Seg Neutrophils % (40.0-70.0) % Seg Neutrophils # (1.8-7.7) K/mm3 PT (12.2-14.9) Sec. INR (0.87-1.13) Sodium (137-145) mmol/L Potassium (3.6-5.0) mmol/L Chloride (98-107) mmol/L Carbon Dioxide (22-30) mmol/L Anion Gap mmol/L BUN (7-17) mg/dL Creatinine (0.7-1.2) mg/dL Estimated GFR ml/min BUN/Creatinine Ratio % Glucose (65-100) mg/dL Calcium (8.4-10.2) mg/dL Magnesium (1.7-2.3) mg/dL NT-Pro-B Natriuret Pep (0-900) pg/mL Urine Color Yellow (Yellow) Urine Turbidity Cloudy (Clear) Urine pH 5.0 (5.0-7.0) Ur Specific [place] 1.025 (1.003-1.030) Urine Protein 100 mg/dl (Negative) mg/dL Urine Glucose (UA) Neg (Negative) mg/dL Urine Ketones Tr (Negative) mg/dL Urine Blood Neg (Negative) Urine Nitrite Neg (Negative) Urine Bilirubin Neg (Negative) Urine Urobilinogen < 2.0 (<2.0) mg/dL Ur Leukocyte Esterase Sm (Negative) Urine WBC (Auto) 11.0 H (0.0-6.0) /HPF Urine RBC (Auto) 16.0 (0.0-6.0) /HPF U Epithel Cells (Auto) 1.0 (0-13.0) /HPF Urine Bacteria (Auto) 3+ (Negative) /HPF Urine Mucus Few /HPF - Radiology Data Radiology results: image reviewed interpreted by me: X-ray the chest is negative for acute disease. status post sternotomy. No CHF. - Medical Decision Making Differential diagnosis: Heel ulcer, neuropathic pain, general medical evaluation Assessment and plan: Elderly 82-year-old female who is bedbound with acute on chronic heel pain. Does not appear to be infected. Has ulceration. Family unable to get Lovenox. Patient will be discharged with Lidoderm prescription, Macrobid for presumed bacteriuria, and Lovenox prescription. As per daughter, goals of care include aggressive resuscitation. Chest x-ray not consistent with CHF. Laboratory studies reviewed and unremarkable. Physical exam otherwise unremarkable. Patient does not require admission to the hospital at this time. She can follow-up. Critical care attestation.: If time is entered above; I have spent that time in minutes in the direct care of this critically ill patient, excluding procedure time. ED Disposition Clinical Impression: Ulcer of right heel Disposition: DC-01 TO HOME OR SELFCARE Is pt being admited?: No Does the pt Need Aspirin: No Condition: Stable Additional Instructions: Take the medications as directed. Follow-up with your primary care doctor within the next 7-10 days. Follow up with the wound care center within the next 7-10 days. Return to the ER right away with fevers, chills, chest pain, shortness of breath, lethargy, irritability, projectile vomiting, change in mental status, inability to tolerate liquid feeds. Prescriptions: Enoxaparin [Lovenox] 90 mg SQ Q12HR #20 syringe Lidocaine [Lidoderm Patch] 1 each TP BID PRN #10 adh..patch PRN Reason: Pain Nitrofurantoin [place]/M-Cryst [Macrobid CAP] 100 mg PO Q12HR #14 capsule Referrals: PRIMARY CAREMD [Primary Care Provider] - 3-5 Days DAVID HARTMANN MD [Staff Physician] - 3-5 Days [facility] [Outside] - 3-5 Days
--- NOTE | 2017-05-26 07:31 | XRay Report ---
AP CHEST: HISTORY: CHF, shortness of breath Previous CABG changes are suspected. Heart size and pulmonary vascularity are within normal limits. The lungs are clear. There is mild elevation of the left hemidiaphragm which is a new finding. The bony structures are grossly intact. IMPRESSION: No acute cardiopulmonary process identified.
== END 2017-05-26 06:02 | disposition home or self-care (01) ==
LOC: ED 00:39
DX: L97.419 Non-pressure chronic ulcer of right heel and midfoot with unspecified severity (principal); I10 Essential (primary) hypertension; I25.2 Old myocardial infarction; I50.9 Heart failure, unspecified; E11.9 Type 2 diabetes mellitus without complications; F03.90 Unspecified dementia, unspecified severity, without behavioral disturbance, psychotic disturbance, mood disturbance, and anxiety; I48.91 Unspecified atrial fibrillation; Z86.718 Personal history of other venous thrombosis and embolism; Z79.82 Long term (current) use of aspirin; Z79.4 Long term (current) use of insulin
CPT/HCPCS: 36415; 51701; 71010; 80048; 81001; 83735; 83880; 85025; 85610

== ENCOUNTER 2017-06-16 13:46 | Outpatient (CLI) | payer MEDICARE | END 2017-06-16 13:47 | disposition home or self-care (01) | LOC: WOUND 13:46 | PROVIDERS: ATTEND Surgery | DX: E11.621 Type 2 diabetes mellitus with foot ulcer (principal); L97.411 Non-pressure chronic ulcer of right heel and midfoot limited to breakdown of skin; L89.610 Pressure ulcer of right heel, unstageable; I11.0 Hypertensive heart disease with heart failure; I50.9 Heart failure, unspecified; F03.90 Unspecified dementia, unspecified severity, without behavioral disturbance, psychotic disturbance, mood disturbance, and anxiety; M06.9 Rheumatoid arthritis, unspecified; Z87.891 Personal history of nicotine dependence; Z86.73 Personal history of transient ischemic attack (TIA), and cerebral infarction without residual deficits | CPT/HCPCS: 99215; G0463 ==

== ENCOUNTER 2017-06-18 13:56 | Outpatient (CLI) | payer MEDICARE ==
[2017-06-18] MEDS ORDERED: XYLOCAINE TOPICAL 4% TP ONE ×2 (15:07→15:10)
== END 2017-06-18 13:57 | disposition home or self-care (01) ==
LOC: WOUND 13:56
PROVIDERS: ATTEND Nurse Practitioner
DX: E11.621 Type 2 diabetes mellitus with foot ulcer (principal); L97.411 Non-pressure chronic ulcer of right heel and midfoot limited to breakdown of skin; L89.613 Pressure ulcer of right heel, stage 3; I11.0 Hypertensive heart disease with heart failure; I50.9 Heart failure, unspecified; M06.9 Rheumatoid arthritis, unspecified; F03.90 Unspecified dementia, unspecified severity, without behavioral disturbance, psychotic disturbance, mood disturbance, and anxiety; Z86.73 Personal history of transient ischemic attack (TIA), and cerebral infarction without residual deficits; Z87.891 Personal history of nicotine dependence

== ENCOUNTER 2017-07-06 12:39 | Outpatient (CLI) | payer MEDICARE ==
[2017-07-06] MEDS ORDERED: XYLOCAINE TOPICAL 4% TP ONE ×2 (13:26→13:32)
== END 2017-07-06 12:40 | disposition home or self-care (01) ==
LOC: WOUND 12:39
PROVIDERS: ATTEND Internal Medicine
DX: E11.621 Type 2 diabetes mellitus with foot ulcer (principal); L97.411 Non-pressure chronic ulcer of right heel and midfoot limited to breakdown of skin; I10 Essential (primary) hypertension; F02.80 Dementia in other diseases classified elsewhere, unspecified severity, without behavioral disturbance, psychotic disturbance, mood disturbance, and anxiety; I25.10 Atherosclerotic heart disease of native coronary artery without angina pectoris; I11.0 Hypertensive heart disease with heart failure; I50.9 Heart failure, unspecified; M06.9 Rheumatoid arthritis, unspecified; Z86.73 Personal history of transient ischemic attack (TIA), and cerebral infarction without residual deficits; Z87.891 Personal history of nicotine dependence

== ENCOUNTER 2017-07-10 13:41 | Outpatient (CLI) | payer MEDICARE ==
--- NOTE | 2017-07-10 15:40 | XRay Report ---
Right foot 3 views: History: Foot pain, osteopenia and Findings: Generalized osteopenia. No periosteal reaction or lytic lesion. Arthritic changes at metatarsophalangeal and interphalangeal joints. Arthritic changes of the tarsometatarsal joints and intertarsal joints. Spur of the posterior-superior calcanei. Impression: Findings as detailed above. No acute changes.
== END 2017-07-10 13:42 | disposition home or self-care (01) ==
LOC: XRAY 13:41
PROVIDERS: ATTEND Internal Medicine
DX: M19.071 Primary osteoarthritis, right ankle and foot (principal); M85.871 Other specified disorders of bone density and structure, right ankle and foot

== ENCOUNTER 2017-07-13 13:08 | Outpatient (CLI) | payer MEDICARE ==
[2017-07-13] MEDS ORDERED: XYLOCAINE TOPICAL 2% ONE (13:30)
[2017-07-13] MEDS ORDERED: XYLOCAINE TOPICAL 2% TP ONE (13:35)
== END 2017-07-13 13:09 | disposition home or self-care (01) ==
LOC: WOUND 13:08
PROVIDERS: ATTEND Internal Medicine
DX: E11.621 Type 2 diabetes mellitus with foot ulcer (principal); L97.411 Non-pressure chronic ulcer of right heel and midfoot limited to breakdown of skin; L89.613 Pressure ulcer of right heel, stage 3; F02.80 Dementia in other diseases classified elsewhere, unspecified severity, without behavioral disturbance, psychotic disturbance, mood disturbance, and anxiety; I25.10 Atherosclerotic heart disease of native coronary artery without angina pectoris; E11.22 Type 2 diabetes mellitus with diabetic chronic kidney disease; I13.0 Hypertensive heart and chronic kidney disease with heart failure and stage 1 through stage 4 chronic kidney disease, or unspecified chronic kidney disease; N18.9 Chronic kidney disease, unspecified; I50.9 Heart failure, unspecified; M19.90 Unspecified osteoarthritis, unspecified site; Z86.73 Personal history of transient ischemic attack (TIA), and cerebral infarction without residual deficits; Z87.891 Personal history of nicotine dependence
CPT/HCPCS: 87075; 87116

== ENCOUNTER 2017-08-31 11:48 | Outpatient (CLI) | payer MEDICARE ==
[2017-08-31] MEDS ORDERED: XYLOCAINE TOPICAL 4% TP ONE ×2 (12:21→14:37)
== END 2017-08-31 11:49 | disposition home or self-care (01) ==
LOC: WOUND 11:48
PROVIDERS: ATTEND Internal Medicine
DX: E11.621 Type 2 diabetes mellitus with foot ulcer (principal); L97.411 Non-pressure chronic ulcer of right heel and midfoot limited to breakdown of skin; L89.613 Pressure ulcer of right heel, stage 3; I25.10 Atherosclerotic heart disease of native coronary artery without angina pectoris; E11.22 Type 2 diabetes mellitus with diabetic chronic kidney disease; I12.9 Hypertensive chronic kidney disease with stage 1 through stage 4 chronic kidney disease, or unspecified chronic kidney disease; N18.3 Chronic kidney disease, stage 3 (moderate); F02.80 Dementia in other diseases classified elsewhere, unspecified severity, without behavioral disturbance, psychotic disturbance, mood disturbance, and anxiety; M06.9 Rheumatoid arthritis, unspecified; Z86.73 Personal history of transient ischemic attack (TIA), and cerebral infarction without residual deficits; Z87.891 Personal history of nicotine dependence

== ENCOUNTER 2017-10-11 01:55 | Emergency (ER) | payer MEDICARE ==
--- NOTE | 2017-10-11 02:54 | Emergency Department Report ---
ED Altered Mental Status HPI - General Chief Complaint: Altered Mental Status Stated Complaint: UNRESPONSIVE Time Seen by Provider: 10/11/17 02:27 Source: family ([facility]), EMS Mode of arrival: Stretcher Limitations: No Limitations, Other - History of Present Illness Initial Comments: 82 YO FEMALE BROUGHT IN BECAUSE OF DIFFICULT TO AROUSE FOR 30 MINUTES BY HER SON. EMS WAS CALLED AND WHEN THEY ATTEMPTED AN IV BECAME RESPONSIVE. IT IS UNCL ;EAR IF THE PT WAS IN A HEAVY SLEEP OR IF THERE WAS SOMETHING NEUROLOGICALLY WRONG WITH HER.DENIES CHEST PAIN,SOB OR ANY OTHER SYMPTOMS. SHE JUST WANTS TO GET OUT OF HERE BEFORE SHE BECOMES CRAZY LIKE US. Complaint: decreased responsiveness -: unknown Context: other (SLEEP) Associated Symptoms: denies other symptoms - Related Data Home Medications Medication Instructions Recorded Confirmed Last Taken Aspirin [Aspirin BABY CHEW TAB] 81 mg PO QDAY 07/12/13 05/26/17 1 Day Ago ~11/30/16 Gabapentin [Neurontin] 300 mg PO BID 12/01/16 05/26/17 1 Day Ago ~11/30/16 LORazepam [Ativan] 2.5 mg PO DAILY 12/01/16 05/26/17 1 Day Ago ~11/30/16 Pantoprazole [Protonix TAB] 40 mg PO BID 12/01/16 05/26/17 1 Day Ago ~11/30/16 Docusate Calcium [Stool Softener] 240 mg PO DAILY 05/26/17 05/26/17 Unknown Donepezil [Aricept] 5 mg PO QDAY 05/26/17 05/26/17 Unknown Gabapentin [Neurontin] 300 mg PO BID 05/26/17 05/26/17 Unknown Insulin Aspart Prot/Aspart(Nf) 0 units SQ TID 05/26/17 05/26/17 Unknown [Novolog Mix 70/30] Insulin Glargine [Lantus] 35 units SQ QHS 05/26/17 05/26/17 Unknown Rivaroxaban [Xarelto] 20 mg PO QDAY 05/26/17 05/26/17 Unknown Rivaroxaban [Xarelto] 30 mg PO BID 05/26/17 05/26/17 Unknown Simvastatin [Zocor TAB] 20 mg PO QHS 05/26/17 05/26/17 Unknown amLODIPine [Norvasc] 5 mg PO DAILY 05/26/17 05/26/17 Unknown Previous Rx's Medication Instructions Recorded Last Taken Type Enoxaparin [Lovenox] 90 mg SQ Q12HR #20 syringe 05/26/17 Unknown Rx Lidocaine [Lidoderm Patch] 1 each TP BID PRN #10 adh..patch 05/26/17 Unknown Rx Nitrofurantoin [place]/M-Cryst 100 mg PO Q12HR #14 capsule 05/26/17 Unknown Rx [Macrobid CAP] Allergies Allergy/AdvReac Type Severity Reaction Status Date / Time amoxicillin [Amoxicillin] Allergy Intermediate Rash Verified 07/12/13 12:09 Penicillins Allergy Intermediate Rash Verified 07/12/13 12:09 codeine Allergy Shortness Verified 05/26/17 01:26 of Breath ED Review of Systems ROS: Stated complaint: UNRESPONSIVE Other details as noted in HPI Constitutional: denies: chills, fever Eyes: denies: eye pain, eye discharge, vision change ENT: denies: ear pain, throat pain Respiratory: denies: cough, shortness of breath, wheezing Cardiovascular: denies: chest pain, palpitations Endocrine: no symptoms reported Gastrointestinal: denies: abdominal pain, nausea, diarrhea Genitourinary: denies: urgency, dysuria, discharge Musculoskeletal: denies: back pain, joint swelling, arthralgia Skin: denies: rash, lesions Neurological: other (NEUROPATHY). denies: headache, weakness, paresthesias Psychiatric: denies: anxiety, depression Hematological/Lymphatic: denies: easy bleeding, easy bruising ED Past Medical Hx - Past Medical History Hx Hypertension: Yes Hx Heart Attack/AMI: Yes (CAD) Hx Congestive Heart Failure: Yes Hx Diabetes: Yes Hx Deep Vein Thrombosis: Yes (2016) Hx Renal Disease: Yes (Renal Insufficiency) Hx Asthma: No Hx Dementia: Yes Additional medical history: high chol, AFIB - Surgical History Hx Open Heart Surgery: Yes (CABG 2 vessels) Additional Surgical History: right hip surgery - Social History Smoking Status: Never Smoker Substance Use Type: None - Medications Home Medications: Home Medications Medication Instructions Recorded Confirmed Last Taken Type Aspirin [Aspirin BABY CHEW TAB] 81 mg PO QDAY 07/12/13 05/26/17 1 Day Ago History ~11/30/16 Gabapentin [Neurontin] 300 mg PO BID 12/01/16 05/26/17 1 Day Ago History ~11/30/16 LORazepam [Ativan] 2.5 mg PO DAILY 12/01/16 05/26/17 1 Day Ago History ~11/30/16 Pantoprazole [Protonix TAB] 40 mg PO BID 12/01/16 05/26/17 1 Day Ago History ~11/30/16 Docusate Calcium [Stool Softener] 240 mg PO DAILY 05/26/17 05/26/17 Unknown History Donepezil [Aricept] 5 mg PO QDAY 05/26/17 05/26/17 Unknown History Enoxaparin [Lovenox] 90 mg SQ Q12HR #20 syringe 05/26/17 Unknown Rx Gabapentin [Neurontin] 300 mg PO BID 05/26/17 05/26/17 Unknown History Insulin Aspart Prot/Aspart(Nf) 0 units SQ TID 05/26/17 05/26/17 Unknown History [Novolog Mix 70/30] Insulin Glargine [Lantus] 35 units SQ QHS 05/26/17 05/26/17 Unknown History Lidocaine [Lidoderm Patch] 1 each TP BID PRN #10 adh..patch 05/26/17 Unknown Rx Nitrofurantoin [place]/M-Cryst 100 mg PO Q12HR #14 capsule 05/26/17 Unknown Rx [Macrobid CAP] Rivaroxaban [Xarelto] 20 mg PO QDAY 05/26/17 05/26/17 Unknown History Rivaroxaban [Xarelto] 30 mg PO BID 05/26/17 05/26/17 Unknown History Simvastatin [Zocor TAB] 20 mg PO QHS 05/26/17 05/26/17 Unknown History amLODIPine [Norvasc] 5 mg PO DAILY 05/26/17 05/26/17 Unknown History ED Physical Exam - General Limitations: Other General appearance: alert, in no apparent distress - Head Head exam: Present: atraumatic, normocephalic - Eye Eye exam: Present: normal appearance, EOMI - ENT ENT exam: Present: mucous membranes moist - Neck Neck exam: Present: normal inspection, full ROM - Respiratory Respiratory exam: Present: rales (RIGTH BSE), other (PT NOT VERY COOPERATIVE FOR LUNG AXAM ). Absent: respiratory distress - Cardiovascular Cardiovascular Exam: Present: regular rate, normal rhythm. Absent: systolic murmur, diastolic murmur, rubs, gallop - GI/Abdominal GI/Abdominal exam: Present: soft, normal bowel sounds - Rectal Rectal exam: Present: deferred - Extremities Exam Extremities exam: Present: normal inspection - Back Exam Back exam: Present: normal inspection - Neurological Exam Neurological exam: Present: alert, oriented X3 - Psychiatric Psychiatric exam: Present: normal affect, normal mood - Skin Skin exam: Present: warm, dry, intact, normal color. Absent: rash ED Course Vital Signs 10/11/17 10/11/17 02:32 02:39 Temperature 98.2 F Pulse Rate 93 H Respiratory 20 20 Rate Blood Pressure 193/79 Blood Pressure 193/79 [Left] O2 Sat by Pulse 90 Oximetry - Reevaluation(s) Reevaluation #1: 10/11/17 02:55 PT NOT VERY COOPERATIVE FOR THE LUNG EXAM. SHE TOLD ME THT I WAS CRAZY FOR ASKING A BREATHING PERSON TO BREATHE 10/11/17 05:45 PT FULLY AWAKE AND WANTS TO GO HOME. I BELIEVE PT WAS JUST ALEXANDER DEEP SLEEP WHEN SHE WAS AROUSED BY HER SON. I DO NOT FEEL THERE WAS A MEDICAL ISSUE TO TREAT - Lab Data Result diagrams: 10/11/17 Unknown 10/11/17 Unknown Lab Results 10/11/17 10/11/17 10/11/17 Range/Units 03:23 03:23 Unknown WBC (4.5-11.0) K/mm3 RBC (3.65-5.03) M/mm3 Hgb (10.1-14.3) gm/dl Hct (30.3-42.9) % MCV (79-97) fl MCH (28-32) pg MCHC (30-34) % RDW (13.2-15.2) % Plt Count (140-440) K/mm3 Lymph % (Auto) (13.4-35.0) % [place] % (Auto) (0.0-7.3) % Eos % (Auto) (0.0-4.3) % Baso % (Auto) (0.0-1.8) % Lymph # (1.2-5.4) K/mm3 [place] # (0.0-0.8) K/mm3 Eos # (0.0-0.4) K/mm3 Baso # (0.0-0.1) K/mm3 Seg Neutrophils % (40.0-70.0) % Seg Neutrophils # (1.8-7.7) K/mm3 Sodium (137-145) mmol/L Potassium (3.6-5.0) mmol/L Chloride (98-107) mmol/L Carbon Dioxide (22-30) mmol/L Anion Gap mmol/L BUN (7-17) mg/dL Creatinine (0.7-1.2) mg/dL Estimated GFR ml/min BUN/Creatinine Ratio % Glucose (65-100) mg/dL Lactic Acid 2.20 H* (0.7-2.0) mmol/L Calcium (8.4-10.2) mg/dL Magnesium (1.7-2.3) mg/dL Total Bilirubin (0.1-1.2) mg/dL AST (5-40) units/L ALT (7-56) units/L Alkaline Phosphatase (35-129) units/L Total Creatine Kinase (30-135) units/L CK-MB (CK-2) (0.0-4.0) ng/mL CK-MB (CK-2) Rel Index (0-4) Troponin T (0.00-0.029) ng/mL NT-Pro-B Natriuret Pep (0-900) pg/mL Total Protein (6.3-8.2) g/dL Albumin (3.9-5) g/dL Albumin/Globulin Ratio % TSH (0.270-4.200) mlU/mL Urine Color Yellow (Yellow) Urine Turbidity Clear (Clear) Urine pH 5.0 (5.0-7.0) Ur Specific [place] 1.017 (1.003-1.030) Urine Protein 30 mg/dl (Negative) mg/dL Urine Glucose (UA) Neg (Negative) mg/dL Urine Ketones Neg (Negative) mg/dL Urine Blood Neg (Negative) Urine Nitrite Neg (Negative) Urine Bilirubin Neg (Negative) Urine Urobilinogen < 2.0 (<2.0) mg/dL Ur Leukocyte Esterase Neg (Negative) Urine WBC (Auto) 1.0 (0.0-6.0) /HPF Urine RBC (Auto) < 1.0 (0.0-6.0) /HPF Urine Bacteria (Auto) 2+ (Negative) /HPF Urine Opiates Screen Urine Methadone Screen Ur Barbiturates Screen Ur Phencyclidine Scrn Ur Amphetamines Screen U Benzodiazepines Scrn Urine Cocaine Screen U Marijuana (THC) Screen Drugs of Abuse Note Plasma/Serum Alcohol < 0.01 (0-0.07) gm% 10/11/17 10/11/17 10/11/17 Range/Units Unknown Unknown Unknown WBC 5.2 (4.5-11.0) K/mm3 RBC 4.23 (3.65-5.03) M/mm3 Hgb 9.2 L (10.1-14.3) gm/dl Hct 30.2 L (30.3-42.9) % MCV 72 L (79-97) fl MCH 22 L (28-32) pg MCHC 31 (30-34) % RDW 18.9 H (13.2-15.2) % Plt Count 293 (140-440) K/mm3 Lymph % (Auto) 39.9 H (13.4-35.0) % [place] % (Auto) 8.1 H (0.0-7.3) % Eos % (Auto) 3.8 (0.0-4.3) % Baso % (Auto) 0.6 (0.0-1.8) % Lymph # 2.1 (1.2-5.4) K/mm3 [place] # 0.4 (0.0-0.8) K/mm3 Eos # 0.2 (0.0-0.4) K/mm3 Baso # 0.0 (0.0-0.1) K/mm3 Seg Neutrophils % 47.6 (40.0-70.0) % Seg Neutrophils # 2.5 (1.8-7.7) K/mm3 Sodium 143 (137-145) mmol/L Potassium 4.8 (3.6-5.0) mmol/L Chloride 107.0 (98-107) mmol/L Carbon Dioxide 24 (22-30) mmol/L Anion Gap 17 mmol/L BUN 27 H (7-17) mg/dL Creatinine 0.9 (0.7-1.2) mg/dL Estimated GFR > 60 ml/min BUN/Creatinine Ratio 30 % Glucose 121 H (65-100) mg/dL Lactic Acid (0.7-2.0) mmol/L Calcium 9.7 (8.4-10.2) mg/dL Magnesium 1.80 (1.7-2.3) mg/dL Total Bilirubin 0.20 (0.1-1.2) mg/dL AST 16 (5-40) units/L ALT 8 (7-56) units/L Alkaline Phosphatase 73 (35-129) units/L Total Creatine Kinase (30-135) units/L CK-MB (CK-2) (0.0-4.0) ng/mL CK-MB (CK-2) Rel Index (0-4) Troponin T (0.00-0.029) ng/mL NT-Pro-B Natriuret Pep (0-900) pg/mL Total Protein 6.8 (6.3-8.2) g/dL Albumin 3.6 L (3.9-5) g/dL Albumin/Globulin Ratio 1.1 % TSH (0.270-4.200) mlU/mL Urine Color (Yellow) Urine Turbidity (Clear) Urine pH (5.0-7.0) Ur Specific [place] (1.003-1.030) Urine Protein (Negative) mg/dL Urine Glucose (UA) (Negative) mg/dL Urine Ketones (Negative) mg/dL Urine Blood (Negative) Urine Nitrite (Negative) Urine Bilirubin (Negative) Urine Urobilinogen (<2.0) mg/dL Ur Leukocyte Esterase (Negative) Urine WBC (Auto) (0.0-6.0) /HPF Urine RBC (Auto) (0.0-6.0) /HPF Urine Bacteria (Auto) (Negative) /HPF Urine Opiates Screen Presumptive negative Urine Methadone Screen Presumptive negative Ur Barbiturates Screen Presumptive negative Ur Phencyclidine Scrn Presumptive negative Ur Amphetamines Screen Presumptive negative U Benzodiazepines Scrn Presumptive negative Urine Cocaine Screen Presumptive negative U Marijuana (THC) Screen Presumptive negative Drugs of Abuse Note Disclamer Plasma/Serum Alcohol (0-0.07) gm% 10/11/17 10/11/17 Range/Units Unknown Unknown WBC (4.5-11.0) K/mm3 RBC (3.65-5.03) M/mm3 Hgb (10.1-14.3) gm/dl Hct (30.3-42.9) % MCV (79-97) fl MCH (28-32) pg MCHC (30-34) % RDW (13.2-15.2) % Plt Count (140-440) K/mm3 Lymph % (Auto) (13.4-35.0) % [place] % (Auto) (0.0-7.3) % Eos % (Auto) (0.0-4.3) % Baso % (Auto) (0.0-1.8) % Lymph # (1.2-5.4) K/mm3 [place] # (0.0-0.8) K/mm3 Eos # (0.0-0.4) K/mm3 Baso # (0.0-0.1) K/mm3 Seg Neutrophils % (40.0-70.0) % Seg Neutrophils # (1.8-7.7) K/mm3 Sodium (137-145) mmol/L Potassium (3.6-5.0) mmol/L Chloride (98-107) mmol/L Carbon Dioxide (22-30) mmol/L Anion Gap mmol/L BUN (7-17) mg/dL Creatinine (0.7-1.2) mg/dL Estimated GFR ml/min BUN/Creatinine Ratio % Glucose (65-100) mg/dL Lactic Acid (0.7-2.0) mmol/L Calcium (8.4-10.2) mg/dL Magnesium (1.7-2.3) mg/dL Total Bilirubin (0.1-1.2) mg/dL AST (5-40) units/L ALT (7-56) units/L Alkaline Phosphatase (35-129) units/L Total Creatine Kinase 59 (30-135) units/L CK-MB (CK-2) 2.0 (0.0-4.0) ng/mL CK-MB (CK-2) Rel Index 3.3 (0-4) Troponin T 0.015 (0.00-0.029) ng/mL NT-Pro-B Natriuret Pep 1520 H (0-900) pg/mL Total Protein (6.3-8.2) g/dL Albumin (3.9-5) g/dL Albumin/Globulin Ratio % TSH 1.310 (0.270-4.200) mlU/mL Urine Color (Yellow) Urine Turbidity (Clear) Urine pH (5.0-7.0) Ur Specific [place] (1.003-1.030) Urine Protein (Negative) mg/dL Urine Glucose (UA) (Negative) mg/dL Urine Ketones (Negative) mg/dL Urine Blood (Negative) Urine Nitrite (Negative) Urine Bilirubin (Negative) Urine Urobilinogen (<2.0) mg/dL Ur Leukocyte Esterase (Negative) Urine WBC (Auto) (0.0-6.0) /HPF Urine RBC (Auto) (0.0-6.0) /HPF Urine Bacteria (Auto) (Negative) /HPF Urine Opiates Screen Urine Methadone Screen Ur Barbiturates Screen Ur Phencyclidine Scrn Ur Amphetamines Screen U Benzodiazepines Scrn Urine Cocaine Screen U Marijuana (THC) Screen Drugs of Abuse Note Plasma/Serum Alcohol (0-0.07) gm% - EKG Data -: EKG Interpreted by Me EKG shows normal: sinus rhythm, axis, intervals, ST-T waves Interpretation: other (LOW VOLTAGE QRS) - Radiology Data Radiology results: report reviewed Critical care attestation.: If time is entered above; I have spent that time in minutes in the direct care of this critically ill patient, excluding procedure time. ED Disposition Clinical Impression: Altered mental status, unspecified Qualifiers: Altered mental status type: unspecified Qualified Code(s): R41.82 - Altered mental status, unspecified Disposition: DC-01 TO HOME OR SELFCARE Is pt being admited?: No Does the pt Need Aspirin: No Condition: Stable Instructions: Altered Mental Status (ED) Forms: AMA Form Time of Disposition: 05:45
[2017-10-11 03:07] LABS: Basophils % (Auto) 0.6 % (0.0-1.8); Eosinophils % (Auto) 3.8 % (0.0-4.3); Hematocrit 30.2 % (30.3-42.9); Hemoglobin 9.2 gm/dl (10.1-14.3); Mean Corpuscular HGB Conc 31 % (30-34); Mean Corpuscular Hemoglobin 22 pg (28-32); Mean Corpuscular Volume 72 fl (79-97); Platelet Count 293 K/mm3 (140-440); Red Blood Count 4.23 M/mm3 (3.65-5.03); Red Cell Distribution Width 18.9 % (13.2-15.2); White Blood Count 5.2 K/mm3 (4.5-11.0)
[2017-10-11 03:24] LABS: Alanine Aminotransferase 8 units/L (7-56); Albumin 3.6 g/dL (3.9-5); Albumin/Globulin Ratio 1.1 %; Alkaline Phosphatase 73 units/L (35-129); Anion Gap 17 mmol/L; BUN/Creatinine Ratio 30; Blood Urea Nitrogen 27 mg/dL (7-17); Calcium 9.7 mg/dL (8.4-10.2); Carbon Dioxide 24 mmol/L (22-30); Glucose 121 mg/dL (65-100); Potassium 4.8 mmol/L (3.6-5.0); Sodium 143 mmol/L (137-145); Total Protein 6.8 g/dL (6.3-8.2)
[2017-10-11 03:25] LABS: Urine Drugs of Abuse Note Disclamer
[2017-10-11 03:42] LABS: Bacteria,Urine 2+ /HPF (Negative); Bilirubin,Urine NEG (Negative); Blood,Urine NEG (Negative); Ketones,Urine NEG (Negative); Leukocyte Esterase,Urine NEG (Negative); Nitrite,Urine NEG (Negative); RBC,Urine < 1.0 /HPF (0.0-6.0); Urobilinogen,Urine < 2.0 mg/dL (<2.0)
[2017-10-11 07:08] VITALS: BP 126/78
== END 2017-10-11 10:33 | disposition home or self-care (01) ==
LOC: ED 01:55
DX: R41.82 Altered mental status, unspecified (principal); I10 Essential (primary) hypertension; I25.2 Old myocardial infarction; E11.9 Type 2 diabetes mellitus without complications; I50.9 Heart failure, unspecified; I82.409 Acute embolism and thrombosis of unspecified deep veins of unspecified lower extremity; E78.5 Hyperlipidemia, unspecified; F03.90 Unspecified dementia, unspecified severity, without behavioral disturbance, psychotic disturbance, mood disturbance, and anxiety; Z79.82 Long term (current) use of aspirin; Z79.4 Long term (current) use of insulin; Z88.0 Allergy status to penicillin; Z88.1 Allergy status to other antibiotic agents; Z88.6 Allergy status to analgesic agent; Z98.890 Other specified postprocedural states
CPT/HCPCS: 36415; 80053; 80307; 81001; 82140; 82550; 82553; 83735; 83880; 84443; 84484; 85025; 93005; 93010; 99284; G0480; 80320

== ENCOUNTER 2017-11-23 09:57 | Outpatient (CLI) | payer MEDICARE ==
[2017-11-23] MEDS ORDERED: XYLOCAINE TOPICAL 4% TP ONE ×2 (10:54→11:02)
== END 2017-11-23 09:58 | disposition home or self-care (01) ==
LOC: WOUND 09:57
PROVIDERS: ATTEND Internal Medicine
DX: E11.621 Type 2 diabetes mellitus with foot ulcer (principal); L97.411 Non-pressure chronic ulcer of right heel and midfoot limited to breakdown of skin; L89.613 Pressure ulcer of right heel, stage 3; F02.80 Dementia in other diseases classified elsewhere, unspecified severity, without behavioral disturbance, psychotic disturbance, mood disturbance, and anxiety; I25.10 Atherosclerotic heart disease of native coronary artery without angina pectoris; E11.22 Type 2 diabetes mellitus with diabetic chronic kidney disease; I13.0 Hypertensive heart and chronic kidney disease with heart failure and stage 1 through stage 4 chronic kidney disease, or unspecified chronic kidney disease; N18.3 Chronic kidney disease, stage 3 (moderate); I50.9 Heart failure, unspecified; M06.9 Rheumatoid arthritis, unspecified; Z86.73 Personal history of transient ischemic attack (TIA), and cerebral infarction without residual deficits; Z87.891 Personal history of nicotine dependence

== ENCOUNTER 2017-12-21 13:03 | Outpatient (CLI) | payer MEDICARE ==
[2017-12-21] MEDS ORDERED: XYLOCAINE TOPICAL 4% TP ONE ×2 (13:21→13:26)
== END 2017-12-21 13:04 | disposition home or self-care (01) ==
LOC: WOUND 13:03
PROVIDERS: ATTEND Internal Medicine
DX: E11.622 Type 2 diabetes mellitus with other skin ulcer (principal); L97.411 Non-pressure chronic ulcer of right heel and midfoot limited to breakdown of skin; L89.613 Pressure ulcer of right heel, stage 3; F02.80 Dementia in other diseases classified elsewhere, unspecified severity, without behavioral disturbance, psychotic disturbance, mood disturbance, and anxiety; I25.10 Atherosclerotic heart disease of native coronary artery without angina pectoris; E11.22 Type 2 diabetes mellitus with diabetic chronic kidney disease; I13.0 Hypertensive heart and chronic kidney disease with heart failure and stage 1 through stage 4 chronic kidney disease, or unspecified chronic kidney disease; N18.3 Chronic kidney disease, stage 3 (moderate); I50.9 Heart failure, unspecified; M06.9 Rheumatoid arthritis, unspecified; Z86.73 Personal history of transient ischemic attack (TIA), and cerebral infarction without residual deficits; Z87.891 Personal history of nicotine dependence

== ENCOUNTER 2018-01-04 12:56 | Outpatient (CLI) | payer MEDICARE | END 2018-01-04 12:57 | disposition home or self-care (01) | LOC: WOUND 12:56 | PROVIDERS: ATTEND Internal Medicine | DX: E11.621 Type 2 diabetes mellitus with foot ulcer (principal); L97.411 Non-pressure chronic ulcer of right heel and midfoot limited to breakdown of skin; L89.613 Pressure ulcer of right heel, stage 3; I25.10 Atherosclerotic heart disease of native coronary artery without angina pectoris; E11.22 Type 2 diabetes mellitus with diabetic chronic kidney disease; I13.0 Hypertensive heart and chronic kidney disease with heart failure and stage 1 through stage 4 chronic kidney disease, or unspecified chronic kidney disease; N18.3 Chronic kidney disease, stage 3 (moderate); I50.9 Heart failure, unspecified; F03.90 Unspecified dementia, unspecified severity, without behavioral disturbance, psychotic disturbance, mood disturbance, and anxiety; Z86.73 Personal history of transient ischemic attack (TIA), and cerebral infarction without residual deficits; Z87.891 Personal history of nicotine dependence | CPT/HCPCS: 11055 ==